=== PATIENT | male | born 1980 | race Hispanic/Latino ===

== ENCOUNTER 2017-01-11 02:41 | Emergency (ER) | payer OTHER, SELFPAY ==
[2017-01-11] MEDS ORDERED: Methocarbamol 1 GM in Sodium Chloride 0.9% 250 ML 250 ML IVPB SCH (03:45)
== END 2017-01-11 05:18 | disposition home or self-care (01) ==
LOC: ERS 02:41
DX: M54.42 Lumbago with sciatica, left side (principal); M62.830 Muscle spasm of back; E78.5 Hyperlipidemia, unspecified; E10.9 Type 1 diabetes mellitus without complications
CPT/HCPCS: 96365; J2800; J7050

== ENCOUNTER 2018-03-18 20:02 | Emergency (ER) | payer SELFPAY ==
[2018-03-18] MEDS ORDERED: Lidocaine Viscous Sol 2% 15 ml UD Cup ONE (20:46)
[2018-03-18] MEDS ORDERED: Mag-Al 1200 mg/1200 mg/30 ML UDCUP ONE (20:46)
[2018-03-18 20:55] LABS: Bilirubin Small (Negative); Blood, Urine Negative (Negative); Clarity CLEAR (Clear); Glucose, Urine (Dipstick) >=1000 mg/dL (Negative); Leukocyte Negative (Negative); Nitrite Negative (Negative); Protein, Urine (Dipstick) Trace mg/dL (Neg-Trace); Specific Gravity, Urine 1.033 (1.002-1.036)
[2018-03-18 21:19] LABS: #Basophils 0.1 thou/uL (0.0-0.2); #Lymphocytes 1.7 thou/uL (1.20-3.40); #Monocytes 1.1 thou/uL (0.11-0.59); #Neutrophils 8.3 thou/uL (1.40-6.50); %Basophils 0.5 % (0.0-1.0); %Eosinophils 0.2 % (0.0-10.0); %Lymphocytes 14.9 % (21.0-51.0); %Neutrophils 74.4 % (42.0-75.0); Hemoglobin 19.1 g/dL (14.0-18.0); Mean Corpuscular HGB CONC 34.9 g/dL (32.0-36.0); Mean Corpuscular Hemoglobin 30.3 pg (27.0-31.0); Mean Corpuscular Volume 86.8 fL (78.0-98.0); Mean Platelet Volume 8.3 fL (7.4-10.4); Platelet Count 284 thou/uL (130-400); RBC Distribution Width 11.7 % (11.5-14.5); Red Blood Cell (RBC) Count 6.31 mill/uL (4.70-6.10); White Blood Cell (WBC) Count 11.2 thou/uL (4.8-10.8)
[2018-03-18 21:52] LABS: ALT (SGPT) 17 U/L (8-55); AST (SGOT) 18 U/L (5-34); Albumin 4.4 g/dL (3.5-5.0); Alkaline Phosphatase 94 U/L (40-150); Anion Gap 21 mmol/L (10-20); BUN (Urea Nitrogen) 27 mg/dL (8.9-20.6); Calc. Creatinine Clearance 0 mL/min (70-130); Calcium 9.5 mg/dL (7.8-10.44); Carbon Dioxide 24 mmol/L (22-29); Chloride 88 mmol/L (98-107); Estimated GFR-MDRD 66; Globulin 3.6 g/dL (2.4-3.5); Glucose 323 mg/dL (70-105); Lipase 6 U/L (8-78); Potassium 3.4 mmol/L (3.5-5.1); Sodium 130 mmol/L (136-145)
[2018-03-18] MEDS ORDERED: Insulin Regular 300 UNITS/3 ML VIAL ONE (23:08)
[2018-03-18] MEDS ORDERED: Metoclopramide HCl 10 MG/2 ML VIAL ONE (23:08)
== END 2018-03-18 23:57 | disposition home or self-care (01) ==
LOC: ERS 20:02
DX: E10.65 Type 1 diabetes mellitus with hyperglycemia (principal); E78.5 Hyperlipidemia, unspecified
CPT/HCPCS: 36416; 80053; 81003; 83690; 85025; 96361; 96374; J1815; J2765

== ENCOUNTER 2018-07-01 06:09 | Inpatient (IN) | payer SELFPAY ==
[2018-07-01 06:46] LABS: Base Excess-Venous -20.3 mmol/L (-2.0 to 3.0); Bicarbonate (HCO3v) 7.3 mmol/L (22.0-28.0); CO2 Tension (PvCO2) 23.1 mmHg (40.0-50.0); Calcium, Ionized 1.06 mmol/L (See Comments:); Chloride 106 mmol/L (98-107); Hemoglobin - Calc 19.4 g/dL (14.0-18.0); O2 Tension (PvO2) 52.8 mmHg (35.0-45.0); Sodium 130 mmol/L (138-145); pH (Venous) 7.109 (7.320-7.430); vO2 Saturation-calc 75.4 % (60.0-85.0)
[2018-07-01] MEDS ORDERED: Ondansetron PF 4 MG/2 ML Vial ONE (06:47)
[2018-07-01 06:50] LABS: Hemoglobin 17.3 g/dL (14.0-18.0); Mean Corpuscular HGB CONC 33.7 g/dL (32.0-36.0); Mean Corpuscular Hemoglobin 29.7 pg (27.0-31.0); Mean Corpuscular Volume 87.9 fL (78.0-98.0); Mean Platelet Volume 9.3 fL (7.4-10.4); Platelet Count 304 thou/uL (130-400); RBC Distribution Width 13.5 % (11.5-14.5); Red Blood Cell (RBC) Count 5.85 mill/uL (4.70-6.10); White Blood Cell (WBC) Count 25.4 thou/uL (4.8-10.8)
[2018-07-01 07:04] LABS: Band 24 % (5-11); Lymphocytes 8 % (21-51); MDiff Complete? YES; Monocytes 7 % (0-10); Neutrophil 59 % (42-75); RBC Morphology Normal; Reactive Lymphocytes 2 % (0-10)
[2018-07-01 07:11] LABS: Actual Bicarbonate (HCO3a) 6.1 mEq/L (22-28); Analyzer IN Cardio ER; Base Excess (BEa) -20.7 mEq/L (-2.0 to +3.0); Calcium, Ionized 1.21 mmol/L (1.12-1.30); Carboxyhemoglobin (COHb) 0.6 gm% (0.0-3.0); Hemoglobin (Hb) 16.7 g/dL (14.0-18.0); O2 Tension (PaO2) 124.2 mmHg (80.0-100.0); Potassium - ABG Lab 4.24 mmol/L (3.70-5.30)
[2018-07-01 07:13] LABS: pH, Arterial 7.14 (7.35-7.45)
[2018-07-01 07:14] LABS: CO2 Tension 18.4 mmHg (35.0-45.0); Puncture Site LBA
[2018-07-01 07:16] LABS: ALT (SGPT) 19 U/L (8-55); AST (SGOT) 15 U/L (5-34); Albumin 5.2 g/dL (3.5-5.0); Alkaline Phosphatase 109 U/L (40-150); Anion Gap 39 mmol/L (10-20); BUN (Urea Nitrogen) 18 mg/dL (8.9-20.6); Bilirubin, Total 0.8 mg/dL (0.2-1.2); Calc. Creatinine Clearance 0 mL/min (70-130); Calcium 10.1 mg/dL (7.8-10.44); Chloride 93 mmol/L (98-107); Estimated GFR-MDRD 41; Globulin 3.6 g/dL (2.4-3.5); Glucose 493 mg/dL (70-105); Potassium 4.4 mmol/L (3.5-5.1); Protein, Total 8.8 g/dL (6.0-8.3); Sodium 136 mmol/L (136-145)
[2018-07-01 07:21] LABS: Carbon Dioxide 8 mmol/L (22-29)
[2018-07-01] MEDS ORDERED: HUMULIN R 100 UNITS in Sodium Chloride 0.9% 100 ML IVPB SCH (07:30)
[2018-07-01] MEDS ORDERED: Insulin Regular 300 UNITS/3 ML VIAL ONE (07:37)
[2018-07-01] MEDS ORDERED: Ondansetron ODT 4 MG TAB PO PRN (08:12)
[2018-07-01] MEDS ORDERED: Dextrose 5 %-0.45 % NaCl 1,000 ML IV PRN (08:12)
[2018-07-01] MEDS ORDERED: Zolpidem Tartrate 5 MG TAB PO PRN (08:12)
[2018-07-01] MEDS ORDERED: CCU Electrolyte Replacement 1 EACH IVPB ONE (08:12)
[2018-07-01] MEDS ORDERED: D5 1/2 NS w/20 mEq KCL 1,000 ML IV PRN (08:12)
[2018-07-01] MEDS ORDERED: NS 0.9% w/ 20 MEQ KCL 1,000 ML IV PRN ×2 (08:12)
[2018-07-01] MEDS ORDERED: Sodium Chloride 0.9% 1,000 ML IV PRN ×4 (08:12)
[2018-07-01] MEDS ORDERED: Acetaminophen 325 MG TAB PO PRN (08:12)
[2018-07-01] MEDS ORDERED: Magnesium Oxide 400 MG TAB PO PRN ×2 (08:36)
[2018-07-01] MEDS ORDERED: Potassium Chloride 40 MEQ in Premix Bag 1 BAG IVPB PRN (08:36)
[2018-07-01] MEDS ORDERED: Potassium Phosphate 12 MMOL in Sodium Chloride 0.9% 250 ML 250 ML IV PRN (08:36)
[2018-07-01] MEDS ORDERED: Potassium Chloride 20 MEQ TAB PO PRN (08:36)
[2018-07-01] MEDS ORDERED: Potassium Phosphate 15 MMOL in Sodium Chloride 0.9% 250 ML 250 ML IV PRN (08:36)
[2018-07-01] MEDS ORDERED: Potassium Chloride 40 MEQ in Sodium Chloride 0.9% 250 ML 250 ML IVPB PRN (08:36)
[2018-07-01] MEDS ORDERED: Magnesium 2 GM/50 ML 2 GM in Premix Bag 1 BAG IVPB PRN (08:36)
[2018-07-01] MEDS ORDERED: CCU ELECTROLYTE REPLACEMENT PROTOCOL FS PRN (08:36)
[2018-07-01 08:45] LABS: Bilirubin Negative (Negative); Blood, Urine Trace (Negative); Clarity TURBID (Clear); Glucose, Urine (Dipstick) >=1000 mg/dL (Negative); Leukocyte Negative (Negative); Nitrite Negative (Negative); Protein, Urine (Dipstick) 30 mg/dL (Neg-Trace); Specific Gravity, Urine 1.026 (1.002-1.036); Urobilinogen 0.2 mg/dL (0.2-1.0)
[2018-07-01 08:49] LABS: BUN (Urea Nitrogen) 18 mg/dL (8.9-20.6); Calc. Creatinine Clearance 0 mL/min (70-130); Calcium 9.1 mg/dL (7.8-10.44); Chloride 100 mmol/L (98-107); Estimated GFR-MDRD 46; Glucose 439 mg/dL (70-105); Potassium 4.3 mmol/L (3.5-5.1); Sodium 137 mmol/L (136-145)
[2018-07-01 08:49] LABS: Bacteria/HPF None Seen HPF (None Seen); Hyaline Casts/LPF 4-6 HYALINE CAST LPF (0-3 Hyaline); Pathc Cast-AUWi Flag 0.27 (0-2.49); RBC/HPF 0-3 HPF (0-3); Squamous Epithelial None Seen HPF (0-3); WBC/HPF None Seen HPF (0-3)
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
[2018-07-01 09:01] LABS: Carbon Dioxide Less than 8 mmol/L (22-29)
--- NOTE | 2018-07-01 09:15 | RAD ---
CHEST ONE VIEW: HISTORY: Diabetic ketoacidosis. COMPARISON: 11/17/2016 FINDINGS: Normal cardiac silhouette. Pulmonary vessels and hilum are normal. Costophrenic angles are clear. No masses or consolidation. No pneumothorax or osseous abnormalities. IMPRESSION: No acute cardiopulmonary process. POS: C
[2018-07-01 12:21] LABS: Lactic Acid 1.6 mmol/L (0.5-2.2)
[2018-07-01] MEDS: Heparin 5,000 UNITS/ML VIAL SC SCH ×2 (12:21→16:03)
[2018-07-01 12:27] VITALS: BMI 28.9
[2018-07-01 12:38] LABS: BUN (Urea Nitrogen) 17 mg/dL (8.9-20.6); Calc. Creatinine Clearance 78 mL/min (70-130); Calcium 8.7 mg/dL (7.8-10.44); Chloride 103 mmol/L (98-107); Estimated GFR-MDRD 46; Glucose 332 mg/dL (70-105); Sodium 139 mmol/L (136-145)
[2018-07-01 12:41] LABS: Carbon Dioxide Less than 8 mmol/L (22-29)
[2018-07-01] MEDS ORDERED: Ondansetron PF 4 MG/2 ML Vial IVP PRN (15:32)
[2018-07-01] MEDS ORDERED: Sodium Chloride 0.9% (PF) 10 ML VIAL FS PRN (15:52)
[2018-07-01] MEDS ORDERED: Pantoprazole 40 MG VIAL IVP SCH (16:00)
[2018-07-01] MEDS: HUMULIN R 100 UNITS in Sodium Chloride 0.9% 100 ML IVPB SCH (16:08)
[2018-07-01] MEDS: D5 1/2 NS w/20 mEq KCL 1,000 ML IV SCH ×2 (16:09→23:12)
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
[2018-07-01 16:43] LABS: Hemoglobin 15.8 g/dL (14.0-18.0)
[2018-07-01 16:51] LABS: INR-International Normal Ratio 1.1; Prothrombin Time 14.3 SEC (12.0-14.7)
[2018-07-01 17:02] LABS: Anion Gap 21 mmol/L (10-20); BUN (Urea Nitrogen) 14 mg/dL (8.9-20.6); Calc. Creatinine Clearance 89 mL/min (70-130); Calcium 8.5 mg/dL (7.8-10.44); Carbon Dioxide 11 mmol/L (22-29); Chloride 112 mmol/L (98-107); Estimated GFR-MDRD 54; Glucose 176 mg/dL (70-105); Sodium 140 mmol/L (136-145)
[2018-07-01] MEDS ORDERED: Promethazine HCl 25 MG/ML VIAL IVPB STA (18:51)
[2018-07-01 19:15] LABS: Magnesium 2.6 mg/dL (1.6-2.6)
[2018-07-01] MEDS ORDERED: Ondansetron PF 4 MG/2 ML Vial IVP SCH (19:15)
[2018-07-01] MEDS ORDERED: Promethazine HCl 12.5 MG in Sodium Chloride 0.9% 50 ML IVPB SCH (19:15)
[2018-07-01 19:19] LABS: Phosphorus 1.3 mg/dL (2.3-4.7)
[2018-07-01 20:02] LABS: Hemoglobin 15.4 g/dL (14.0-18.0)
[2018-07-01] MEDS: Pantoprazole 40 MG VIAL IVP SCH (20:03)
[2018-07-01] MEDS: Potassium Phosphate 9 MMOL in Sodium Chloride 0.9% 100 ML IVPB PRN (20:28)
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
[2018-07-02] MEDS: Ondansetron PF 4 MG/2 ML Vial IVP SCH ×4 (00:25→17:59)
[2018-07-02] MEDS: HUMULIN R 100 UNITS in Sodium Chloride 0.9% 100 ML IVPB SCH ×2 (02:45→17:54)
[2018-07-02 04:50] LABS: #Monocytes 1.3 thou/uL (0.11-0.59); #Neutrophils 13.5 thou/uL (1.40-6.50); %Basophils 0.3 % (0.0-1.0); %Eosinophils 0.1 % (0.0-10.0); %Lymphocytes 6.5 % (21.0-51.0); %Neutrophils 85.2 % (42.0-75.0); Hemoglobin 14.7 g/dL (14.0-18.0); Mean Corpuscular HGB CONC 34.7 g/dL (32.0-36.0); Mean Corpuscular Hemoglobin 30.3 pg (27.0-31.0); Mean Corpuscular Volume 87.3 fL (78.0-98.0); Mean Platelet Volume 8.7 fL (7.4-10.4); Platelet Count 232 thou/uL (130-400); RBC Distribution Width 13.4 % (11.5-14.5); Red Blood Cell (RBC) Count 4.85 mill/uL (4.70-6.10); White Blood Cell (WBC) Count 15.9 thou/uL (4.8-10.8)
[2018-07-02 05:05] LABS: Anion Gap 15 mmol/L (10-20); BUN (Urea Nitrogen) 11 mg/dL (8.9-20.6); Calc. Creatinine Clearance 110 mL/min (70-130); Calcium 8.9 mg/dL (7.8-10.44); Carbon Dioxide 16 mmol/L (22-29); Chloride 112 mmol/L (98-107); Estimated GFR-MDRD 69; Glucose 156 mg/dL (70-105); Magnesium 2.1 mg/dL (1.6-2.6); Potassium 3.3 mmol/L (3.5-5.1); Sodium 140 mmol/L (136-145)
[2018-07-02 05:06] LABS: Phosphorus Less than 1.0 mg/dL (2.3-4.7)
[2018-07-02] MEDS: D5 1/2 NS w/20 mEq KCL 1,000 ML IV SCH ×3 (05:42→22:13)
[2018-07-02] MEDS: Pantoprazole 40 MG VIAL IVP SCH ×2 (11:16→20:59)
--- NOTE | 2018-07-02 16:02 | PRG ---
DATE OF SERVICE: 07/02/2018 SUBJECTIVE: Mr. Mena has had no further hematemesis. He is taking a little bit of liquids. He is a little bit nauseated right now. His previous admission with DKA had a similar event with hematemesis. His endoscopy at that time showed LA grade D reflux esophagitis and a small Kaitlynn-Andrews tear. I suspect that the same process presently. Nurses note he is coming out of his DKA. He states he feels much better than yesterday. OBJECTIVE: VITAL SIGNS: Temperature is 98.3, blood pressure 112/63, and pulse 69. ABDOMEN: Soft and nontender. LUNGS: Clear. LABORATORY DATA: White count 15.9, hemoglobin 14.7, and platelet count 232. BUN and creatinine are 14 and 1.47. Phosphorus 1.3 and magnesium 2.6. They have been replaced. Anion gap was 15, potassium 3.3, chloride 112, CO2 of 16, and sodium 140. ASSESSMENT: 1. Diabetic ketoacidosis secondary to running out of his medications. 2. Hematemesis, likely related to severe reflux esophagitis and Kaitlynn-Andrews tear. Again, this is resolved. No need for transfusion. RECOMMENDATIONS: 1. Continue IV PPI q.12 hours. Advance diet slowly. 2. Replace electrolytes as necessary. Job ID: [id number]
[2018-07-02] MEDS ORDERED: D5 1/2 NS w/20 mEq KCL 1,000 ML IV SCH (16:50)
--- NOTE | 2018-07-02 17:02 | PRG ---
DATE OF SERVICE: 07/02/2018 SERVICE: Pulmonary Medicine. INTERVAL HISTORY: The patient is doing great from a respiratory standpoint. Breathing comfortably. Denies any current chest pain, fevers, or chills. Since his last episode of vomiting, he has not brought up anything else. He does not have any nausea, vomiting, or diarrhea at this point. That being said, he has a complete food aversion still. He has no desire to eat. PHYSICAL EXAMINATION: VITAL SIGNS: Afebrile, pulse 68, blood pressure 106/66, respirations 13, and saturation 100% on room air. GENERAL: The patient is awake and alert, in no apparent distress. LUNGS: Decent air entry. No prolonged expiratory phase or wheezing appreciated. HEART: Normal rate, regular. ABDOMEN: Soft, nontender, and nondistended. Bowel sounds positive. MUSCULOSKELETAL: No cyanosis or clubbing. No pitting in the bilateral lower extremities. NEUROLOGIC: Grossly nonfocal. LABORATORY DATA: Hemoglobin is gently trending down to 14.7, WBC 15.9, and platelets 232,000. INR was previously 1.1. Blood sugar ranges from 129 to 192. Phosphorus was less than the acid limit of 1, magnesium 2.1. Creatinine 1.19, which is beautifully downtrending. Basic metabolic profile is otherwise unremarkable except for potassium of 3.3. Beta-hydroxybutyrate 2.35. Blood cultures x2 are unremarkable. ASSESSMENT: 1. Diabetic ketoacidosis. 2. Upper gastrointestinal bleed, suspected Kaitlynn-Andrews tear. 3. Acute kidney injury, resolved. DISCUSSION AND PLAN: The patient is doing absolutely wonderful. At this point, he still does not have a food aversion. As soon as he has an appetite, we will put him on long-acting insulin and interrupt our IV insulin drip. Until that occurs, we will leave him on his current IV fluids. Pulmonary Critical Care will continue to follow along. Otherwise, supportive measures will be continued through time. Job ID: [id number]
[2018-07-02 20:40] LABS: Anion Gap 12 mmol/L (10-20); BUN (Urea Nitrogen) 6 mg/dL (8.9-20.6); Calc. Creatinine Clearance 132 mL/min (70-130); Carbon Dioxide 21 mmol/L (22-29); Chloride 107 mmol/L (98-107); Estimated GFR-MDRD 85; Glucose 224 mg/dL (70-105); Sodium 137 mmol/L (136-145)
[2018-07-02 20:45] LABS: Phosphorus 1.1 mg/dL (2.3-4.7)
[2018-07-02] MEDS: Potassium Phosphate 9 MMOL in Sodium Chloride 0.9% 100 ML IVPB PRN (21:00)
[2018-07-02] MEDS ORDERED: Insulin Regular 300 UNITS/3 ML VIAL SC PRN ×2 (21:08)
[2018-07-02] MEDS ORDERED: Dextrose 50% Abboject 50 ML SYRINGE SLOW IVP PRN (21:08)
[2018-07-02] MEDS ORDERED: Dextrose 5% in Water 1,000 ML IV PRN (21:08)
[2018-07-02] MEDS ORDERED: 1/2 NS w/KCL 20 mEq 1,000 ML IV SCH (21:15)
[2018-07-02] MEDS ORDERED: NPH, Human Insulin Isophane 300 UNIT/3 ML VIAL SC SCH (21:15)
--- NOTE | 2018-07-02 23:08 | PDOC.PN ---
- Subjective Encounter Start Date: 07/02/18 Encounter Start Time: 09:45 Patient seen and examined for DKA. Nausea +. No hematemesis. No new complaints. No overnight events - Objective Resuscitation Status - Order Detail: 07/01/18 08:09 Resuscitation Status Routine Resuscitation Status: FULL: Full Resuscitation MAR Reviewed: Yes Vital Signs & Weight: Vital Signs (12 hours) Temp 07/02/18 20:00 98.6 F 07/02/18 15:18 98.3 F Weight Weight 201 lb 6.4 oz Most Recent Monitor Data Heart Rate from ECG 75 NIBP 112/65 NIBP BP-Mean 80 Respiration from ECG 18 SpO2 97 I&O: 07/01/18 07/02/18 07/03/18 06:59 06:59 06:59 Intake Total 2035 2500 Output Total 650 Balance 1385 2500 Result Diagrams: 07/02/18 04:09 07/02/18 20:15 Additional Labs: Accuchecks 07/02/18 07/02/18 07/02/18 22:06 21:00 20:01 POC Glucose 182 H 209 H 214 H 07/02/18 07/02/18 07/02/18 19:08 17:53 16:01 POC Glucose 262 H 286 H 192 H 07/02/18 07/02/18 07/02/18 14:59 13:06 12:19 POC Glucose 148 H 158 H 139 H 07/02/18 07/02/18 07/02/18 10:53 10:01 09:04 POC Glucose 131 H 129 H 125 H 07/02/18 07/02/18 07/02/18 08:16 07:09 06:04 POC Glucose 134 H 116 H 130 H 07/02/18 07/02/18 07/02/18 05:18 04:07 03:05 POC Glucose 134 H 149 H 161 H 07/02/18 07/02/18 07/02/18 01:57 01:03 00:03 POC Glucose 172 H 167 H 211 H 07/01/18 23:05 POC Glucose 189 H Radiology Reviewed by me: Yes (CXR - Neg) EKG Reviewed by me: Yes (Tele SR) Phys Exam - Physical Examination Constitutional: NAD Respiratory: no wheezing, no rales, no rhonchi, clear to auscultation bilateral Cardiovascular: no rub no heaves/pulsations. Tachycardic Gastrointestinal: soft, positive bowel sounds Musculoskeletal: no edema, pulses present Neurological: non-focal, normal sensation, moves all 4 limbs Psychiatric: normal affect, A&O x 3 Skin: no rash Dx/Plan - Plan DVT proph w/SCDs 1. DKA due to med noncompliance 2. Hematemesis - prob due to Reflux esophagitis 3. Electrolyte abnormalities (Hypokalemia/Hypophosphatemia) 4. Metabolic acidosis due to Lactic and DKA 5. Dehydration 6. OSWALDO on CKD 2 7. Type 1 DM PLAN: Cont Insulin drip Cont D51/2 NS with KCL Replace electrolytes Cont IV PPI Clear liqd diet AM labs Repeat BMP later today Counselled on med compliance Review of Systems - Review of Systems Respiratory: negative: Cough, Dry, Shortness of Breath, Hemoptysis, SOB with Excertion, Pleuritic Pain, Sputum, Wheezing Cardiovascular: negative: chest pain, palpitations, orthopnea, paroxysmal nocturnal dyspnea, edema, light headedness, other Genitourinary: negative: Dysuria, Frequency, Incontinence, Hematuria, Retention , Other - Medications/Allergies Allergies/Adverse Reactions: Allergies Allergy/AdvReac Type Severity Reaction Status Date / Time No Known Drug Allergies Allergy Verified 07/01/18 11:54 Medications: Current Medications Acetaminophen (Tylenol) 650 mg PO Q4H PRN PRN Reason: Headache/Fever/Mild Pain (1-3) Dextrose/Water (Dextrose 50%) 25 gm SLOW IVP PRN PRN PRN Reason: Hypoglycemia Glucagon (Glucagon) 1 mg IM PRN PRN PRN Reason: Hypoglycemia Insulin Human Regular 100 (units/ Sodium Chloride) 101 mls @ 0 mls/hr IVPB INF DASH; Protocol Last Admin: 07/02/18 17:54 Dose: 101 mls Potassium Chloride 40 meq/ (Sodium Chloride) 270 mls @ 135 mls/hr IVPB ASDIR PRN PRN Reason: FOR SERUM K+ 2.5 - 3.5 Potassium Chloride 40 meq/ (Device) 100 mls @ 50 mls/hr IVPB ASDIR PRN PRN Reason: FOR SERUM K+ 2.5 - 3.5 Magnesium Sulfate 1 gm/ Sodium (Chloride) 102 mls @ 102 mls/hr IV PRN PRN PRN Reason: MAG LEVEL 1.4 - 2.0 Magnesium Sulfate 2 gm/ Device 50 mls @ 50 mls/hr IVPB ASDIR PRN PRN Reason: MAGNESIUM < 1.4 Potassium Phosphate 9 mmol/ (Sodium Chloride) 103 mls @ 25.75 mls/hr IVPB ASDIR PRN PRN Reason: Phosphate 1.0-1.8 Last Admin: 07/02/18 21:00 Dose: 103 mls Potassium Phosphate 12 mmol/ (Sodium Chloride) 254 mls @ 63.5 mls/hr IV ASDIR PRN PRN Reason: Serum phosphate 0.5-0.9 Last Admin: 07/02/18 05:42 Dose: 254 mls Potassium Phosphate 15 mmol/ (Sodium Chloride) 255 mls @ 63.75 mls/hr IV ASDIR PRN PRN Reason: Serum Phos < 0.5 Dextrose/Water (D5w) 1,000 mls @ 0 mls/hr IV .Q0M PRN PRN Reason: Hypoglycemia Potassium Chloride/Dextrose/Sod Cl (D5 1/2 Ns W/20 Meq Kcl) 1,000 mls @ 100 mls /hr IV .Q10H DASH Last Admin: 07/02/18 22:13 Dose: Not Given Insulin Human Regular (Humulin R) 0 units SC .BEDTIME SLIDING SC PRN PRN Reason: Bedtime Correctional Scale Insulin Human Regular (Humulin R) 0 units SC .AGGRESSIVE SLIDING PRN PRN Reason: Aggressive Sliding Scale Magnesium Oxide (Magnesium Oxide) 400 mg PO BIDPRN PRN PRN Reason: FOR SERUM MAG 1.4 - 2.0 Magnesium Oxide (Magnesium Oxide) 800 mg PO PRN PRN PRN Reason: FOR SERUM MAG < 1.4 Miscellaneous Medication (Phos-Nak) 1 pkt PO TIDPRN PRN PRN Reason: FOR PHOS LEVEL 1.0 - 1.8 Miscellaneous Medication (Phos-Nak) 2 pkt PO TIDPRN PRN PRN Reason: FOR PHOS LEVEL 0.5 - 1.0 Ccu Electrolyte (Replacement Protocol) 0 each FS PRN PRN PRN Reason: FOR ELECTROLYTE REPLACEMENT Ondansetron HCl (Zofran Odt) 4 mg PO Q6H PRN PRN Reason: Nausea/Vomiting Last Admin: 07/01/18 12:34 Dose: 4 mg Ondansetron HCl (Zofran) 4 mg IVP Q6HR DASH Last Admin: 07/02/18 17:59 Dose: 4 mg Pantoprazole Sodium (Protonix) 40 mg IVP Q12HR DASH Phosphorus (Kphos Neutral) 250 mg PO TID-WM DASH Potassium Chloride (K-Dur) 40 meq PO ASDIR PRN PRN Reason: FOR SERUM K+ 2.5 - 3.5 Potassium Chloride (Klor-Con) 40 meq PER TUBE ASDIR PRN PRN Reason: FOR SERUM K+ 2.5-3.5 Sodium Chloride (Normal Saline Pf) 10 ml FS PRN PRN PRN Reason: RECONSTITUTION Zolpidem Tartrate (Ambien) 5 mg PO HSPRN PRN PRN Reason: Insomnia
[2018-07-03] MEDS: Ondansetron PF 4 MG/2 ML Vial IVP SCH ×5 (00:06→23:28)
[2018-07-03 05:17] LABS: #Lymphocytes 1.3 thou/uL (1.20-3.40); #Monocytes 0.8 thou/uL (0.11-0.59); #Neutrophils 6.8 thou/uL (1.40-6.50); %Basophils 0.5 % (0.0-1.0); %Eosinophils 0.1 % (0.0-10.0); %Lymphocytes 14.2 % (21.0-51.0); %Monocytes 9.2 % (0.0-10.0); Hemoglobin 14.8 g/dL (14.0-18.0); Mean Corpuscular HGB CONC 34.8 g/dL (32.0-36.0); Mean Corpuscular Hemoglobin 30.2 pg (27.0-31.0); Mean Platelet Volume 8.6 fL (7.4-10.4); Platelet Count 212 thou/uL (130-400); RBC Distribution Width 13.4 % (11.5-14.5); White Blood Cell (WBC) Count 8.9 thou/uL (4.8-10.8)
[2018-07-03 05:40] LABS: Anion Gap 12 mmol/L (10-20); BUN (Urea Nitrogen) 5 mg/dL (8.9-20.6); Calc. Creatinine Clearance 152 mL/min (70-130); Calcium 8.9 mg/dL (7.8-10.44); Carbon Dioxide 23 mmol/L (22-29); Chloride 105 mmol/L (98-107); Estimated GFR-MDRD Greater than 90; Glucose 166 mg/dL (70-105); Sodium 137 mmol/L (136-145)
[2018-07-03 05:55] LABS: Potassium 2.9 mmol/L (3.5-5.1)
[2018-07-03 05:59] LABS: Phosphorus 2.1 mg/dL (2.3-4.7)
[2018-07-03] MEDS: D5 1/2 NS w/20 mEq KCL 1,000 ML IV SCH (06:18)
[2018-07-03] MEDS ORDERED: K-Phos Neutral 250 MG TAB PO SCH (08:00)
[2018-07-03] MEDS ORDERED: NPH, Human Insulin Isophane 300 UNIT/3 ML VIAL SC SCH (09:00)
[2018-07-03] MEDS ORDERED: Potassium Phosphate 12 MMOL in Sodium Chloride 0.9% 100 ML IVPB SCH (12:00)
[2018-07-03] MEDS ORDERED: Potassium Chloride 20 MEQ TAB PO SCH (14:00)
[2018-07-03] MEDS ORDERED: HumuLIN 70/30 (300 UNITS/3 ML VIAL) SC SCH (14:00)
[2018-07-03] MEDS: HUMULIN R 100 UNITS in Sodium Chloride 0.9% 100 ML IVPB SCH (14:04)
--- NOTE | 2018-07-03 14:11 | PRG ---
DATE OF SERVICE: 07/03/2018 SERVICE: Pulmonary Medicine. INTERVAL HISTORY: The patient is doing great from a respiratory standpoint. Denies any current chest pain, fevers, chills, nausea, vomiting, or shortness of breath. His appetite has perked up. Otherwise, there has been no other changes in his condition. PHYSICAL EXAMINATION: VITAL SIGNS: Afebrile, pulse 65, blood pressure 121/77, respirations 14, and saturation 100% on room air. GENERAL: The patient is awake and alert, in no apparent distress. LUNGS: Excellent air entry. There is no prolonged expiratory phase or wheezing. HEART: Normal rate and regular. ABDOMEN: Soft, nontender, and nondistended. Bowel sounds are positive. MUSCULOSKELETAL: No cyanosis or clubbing. No pitting in the bilateral lower extremities. NEUROLOGIC: Grossly nonfocal. LABORATORY DATA: WBC 8.9, hemoglobin 14.8, and platelets 212,000. Potassium 2.9. Basic metabolic profile is otherwise unremarkable. Phosphorus 2.1. Anion gap is closed. Bicarb is back to the normal range. Blood sugars range in the mid to low 200s. Blood cultures x2 are unremarkable. ASSESSMENT: 1. Diabetic ketoacidosis. 2. Upper gastrointestinal bleed, suspected Kaitlynn-Andrews tear with stable hemoglobins. 3. Acute kidney injury, resolved. DISCUSSION AND PLAN: I will replace potassium and phosphorus. At this point, we will convert him over to subcu insulin. Get him out of the IMCU. If he is stable tomorrow, he can be discharged from the hospital. When he leaves the IMCU, he will have no further requirements for pulmonary opinion and I will sign off. Please call with any additional questions or concerns through time. Job ID: [id number]
[2018-07-03] MEDS: Pantoprazole 40 MG VIAL IVP SCH ×2 (16:26→20:35)
[2018-07-03] MEDS: HumuLIN 70/30 (300 UNITS/3 ML VIAL) SC SCH (17:51)
--- NOTE | 2018-07-03 19:12 | PRG ---
DATE OF SERVICE: 07/03/2018 SUBJECTIVE: Mr. Mena is feeling much better. He is going to eat. He is having no further nausea. He has had no vomiting. OBJECTIVE: VITAL SIGNS: Temperature is 97, pulse 63, and blood pressure 146/86. GENERAL: He is now going upstairs. LABORATORY DATA: White count is 8.9, hemoglobin 14.8, and platelet count 212. Anion gap was closed today. ASSESSMENT: Hematemesis, self-limited when he was in diabetic ketoacidosis and having persistent retching. Most likely, he had esophagitis or Kaitlynn-Andrews tear. He has had no emesis or melena in 2 days. His hemoglobin is stable. RECOMMENDATIONS: 1. Continue PPI. If tolerating diet, we can change to oral PPIs. 2. Poorly controlled diabetes, DKA related to apparently even running out of noncompliance with insulin. I have discussed with him that this will affect his entire body including GI tract and the link between the severe DKA and his nausea, abdominal pain, and vomiting. At this time, he has no primary signs of GI tract disease or liver disease. We will go ahead and sign off. If we can be of any further assistance, please do not hesitate to contact me. Job ID: [id number]
--- NOTE | 2018-07-03 22:54 | PDOC.PN ---
- Subjective Encounter Start Date: 07/03/18 Encounter Start Time: 16:00 Patient seen and examined for DKA. Nausea improving. No new complaints. No overnight events - Objective Resuscitation Status - Order Detail: 07/01/18 08:09 Resuscitation Status Routine Resuscitation Status: FULL: Full Resuscitation MAR Reviewed: Yes Vital Signs & Weight: Vital Signs (12 hours) Temp Pulse Resp BP Pulse Ox 07/03/18 21:16 99 F 71 16 103/69 100 07/03/18 20:00 98.3 F 87 18 143/73 H 94 L 07/03/18 18:10 97.9 F 72 16 142/72 H 96 07/03/18 15:02 97.7 F Weight Weight 201 lb 6.4 oz Most Recent Monitor Data Heart Rate from ECG 63 NIBP 146/86 NIBP BP-Mean 106 Respiration from ECG 17 SpO2 90 I&O: 07/02/18 07/03/18 07/04/18 06:59 06:59 06:59 Intake Total 2035 4005.5 Output Total 650 1100 Balance 1385 2905.5 Result Diagrams: 07/04/18 06:18 07/04/18 06:18 Additional Labs: Accuchecks 07/03/18 07/03/18 07/03/18 21:25 14:57 13:58 POC Glucose 257 H 260 H 195 H 07/03/18 07/03/18 07/03/18 13:01 12:09 11:07 POC Glucose 235 H 200 H 212 H 07/03/18 07/03/18 07/03/18 10:05 09:10 08:03 POC Glucose 221 H 261 H 228 H 07/03/18 07/03/18 07/03/18 07:06 06:15 05:07 POC Glucose 235 H 213 H 167 H 07/03/18 07/03/18 07/03/18 04:08 03:06 02:05 POC Glucose 138 H 112 H 122 H 07/03/18 07/03/18 07/02/18 01:05 00:07 23:02 POC Glucose 151 H 149 H 149 H EKG Reviewed by me: Yes (Tele SR) Phys Exam - Physical Examination Constitutional: NAD Respiratory: no wheezing, no rhonchi Cardiovascular: RRR, no rub Gastrointestinal: soft, non-tender, positive bowel sounds Musculoskeletal: no edema Neurological: moves all 4 limbs Dx/Plan - Plan DVT proph w/SCDs 1. DKA 2. Hematemesis - prob due to Reflux esophagitis 3. Electrolyte abnormalities (Hypokalemia/Hypophosphatemia) 4. Metabolic acidosis due to Lactic and DKA 5. Dehydration 6. OSWALDO on CKD 2 7. Type 1 DM PLAN: Change Insulin drip to SQ later today Advance diet PPI AM labs Counselled on med compliance Review of Systems - Review of Systems Respiratory: negative: Cough, Dry, Shortness of Breath, Hemoptysis, SOB with Excertion, Pleuritic Pain, Sputum, Wheezing Cardiovascular: negative: chest pain, palpitations, orthopnea, paroxysmal nocturnal dyspnea, edema, light headedness, other - Medications/Allergies Allergies/Adverse Reactions: Allergies Allergy/AdvReac Type Severity Reaction Status Date / Time No Known Drug Allergies Allergy Verified 07/01/18 11:54 Medications: Current Medications Acetaminophen (Tylenol) 650 mg PO Q4H PRN PRN Reason: Headache/Fever/Mild Pain (1-3) Dextrose/Water (Dextrose 50%) 25 gm SLOW IVP PRN PRN PRN Reason: Hypoglycemia Glucagon (Glucagon) 1 mg IM PRN PRN PRN Reason: Hypoglycemia Insulin Human Regular 100 (units/ Sodium Chloride) 101 mls @ 0 mls/hr IVPB INF DASH; Protocol Last Admin: 07/03/18 14:04 Dose: 101 mls Dextrose/Water (D5w) 1,000 mls @ 0 mls/hr IV .Q0M PRN PRN Reason: Hypoglycemia Insulin Human Isoph/Insulin Regular (Humulin 70/30) 20 units SC BID-AC DASH Last Admin: 07/03/18 17:51 Dose: Not Given Insulin Human Regular (Humulin R) 0 units SC .BEDTIME SLIDING SC PRN PRN Reason: Bedtime Correctional Scale Last Admin: 07/03/18 21:51 Dose: 3 unit Insulin Human Regular (Humulin R) 0 units SC .AGGRESSIVE SLIDING PRN PRN Reason: Aggressive Sliding Scale Ondansetron HCl (Zofran Odt) 4 mg PO Q6H PRN PRN Reason: Nausea/Vomiting Last Admin: 07/01/18 12:34 Dose: 4 mg Ondansetron HCl (Zofran) 4 mg IVP Q6HR DASH Last Admin: 07/03/18 17:58 Dose: 4 mg Pantoprazole Sodium (Protonix) 40 mg IVP Q12HR DASH Last Admin: 07/03/18 20:35 Dose: 40 mg Sodium Chloride (Normal Saline Pf) 10 ml FS PRN PRN PRN Reason: RECONSTITUTION Zolpidem Tartrate (Ambien) 5 mg PO HSPRN PRN PRN Reason: Insomnia
[2018-07-03] MEDS: 1/2 NS w/KCL 20 mEq 1,000 ML IV SCH (23:28)
[2018-07-04] MEDS: Ondansetron PF 4 MG/2 ML Vial IVP SCH ×3 (05:44→17:09)
[2018-07-04 06:40] LABS: #Lymphocytes 2.3 thou/uL (1.20-3.40); #Monocytes 0.7 thou/uL (0.11-0.59); #Neutrophils 3.9 thou/uL (1.40-6.50); %Basophils 0.3 % (0.0-1.0); %Eosinophils 0.4 % (0.0-10.0); %Lymphocytes 32.6 % (21.0-51.0); %Monocytes 10.2 % (0.0-10.0); %Neutrophils 56.6 % (42.0-75.0); Hemoglobin 15.3 g/dL (14.0-18.0); Mean Corpuscular HGB CONC 34.7 g/dL (32.0-36.0); Mean Corpuscular Hemoglobin 30.5 pg (27.0-31.0); Mean Corpuscular Volume 87.9 fL (78.0-98.0); Mean Platelet Volume 8.6 fL (7.4-10.4); Platelet Count 208 thou/uL (130-400); RBC Distribution Width 13.3 % (11.5-14.5); Red Blood Cell (RBC) Count 5.01 mill/uL (4.70-6.10); White Blood Cell (WBC) Count 6.9 thou/uL (4.8-10.8)
[2018-07-04 06:52] LABS: Anion Gap 15 mmol/L (10-20); BUN (Urea Nitrogen) 7 mg/dL (8.9-20.6); Calc. Creatinine Clearance 141 mL/min (70-130); Carbon Dioxide 27 mmol/L (22-29); Chloride 101 mmol/L (98-107); Estimated GFR-MDRD Greater than 90; Glucose 278 mg/dL (70-105); Potassium 3.5 mmol/L (3.5-5.1); Sodium 139 mmol/L (136-145)
[2018-07-04] MEDS: Pantoprazole 40 MG VIAL IVP SCH (08:14)
[2018-07-04] MEDS ORDERED: Potassium Chloride 20 MEQ TAB PO SCH (08:45)
[2018-07-04] MEDS: HumuLIN 70/30 (300 UNITS/3 ML VIAL) SC SCH (09:24)
[2018-07-04] MEDS: 1/2 NS w/KCL 20 mEq 1,000 ML IV SCH (12:34)
--- NOTE | 2018-07-04 16:10 | PRG ---
DATE OF SERVICE: 07/04/2018 SERVICE: Pulmonary Medicine. INTERVAL HISTORY: The patient is doing great from respiratory standpoint. He feels fantastic, and he is back to baseline. There was a mishap with the insulin. He did not get a dose of his longer-acting insulin. As such, his sugars are running a little high right now. That being said, this has not translated into him feeling lousy. He is breathing comfortably. He has great appetite. PHYSICAL EXAMINATION: VITAL SIGNS: Afebrile, pulse 66, blood pressure 170/117, respirations 18, and saturation 97% on room air. GENERAL: The patient is awake and alert, in no apparent distress. LUNGS: Decent air entry. There is no prolonged expiratory phase or wheezing present. HEART: Normal rate and regular. ABDOMEN: Soft, nontender, and nondistended. Bowel sounds are positive. MUSCULOSKELETAL: No cyanosis or clubbing. No pitting in the bilateral lower extremities. NEUROLOGIC: Grossly nonfocal. LABORATORY DATA: WBC 6.9, hemoglobin 15.3, platelets 208,000. Basic metabolic profile is essentially unremarkable other than potassium of 3.5. Phosphorus 3.0. Blood cultures x2 remain negative. ASSESSMENT: 1. Diabetic ketoacidosis. 2. Type 1 diabetes mellitus. 3. Upper gastrointestinal bleed, likely Kaitlynn-Andrews tear. 4. Acute kidney injury, resolved. DISCUSSION AND PLAN: I will replace potassium today. IV fluids will be interrupted. From my perspective, the patient is stable for transition out of the hospital. He has no further requirements for inpatient Pulmonary Critical Care opinion, and I will sign off. Please call with additional questions or concerns through time. Job ID: [id number]
[2018-07-04] MEDS ORDERED: HumuLIN 70/30 (300 UNITS/3 ML VIAL) SC SCH (16:30)
[2018-07-04 17:05] VITALS: BP 126/86; TEMP 98.4
--- NOTE | 2018-07-04 21:20 | DIS ---
DATE OF ADMISSION: 07/01/2018 DATE OF DISCHARGE: 07/04/2018 DISCHARGE DISPOSITION: Home. FOLLOWUP: Follow up with primary care physician at [facility] in 1 week. Patient was extensively counseled to be compliant with insulin. The patient was seen and examined on the day of discharge. Denies any new complaints. No chest pain, shortness of breath palpitations. DISCHARGE MEDICATION: 1. Humulin 70/30, 25 units b.i.d. with meals. 2. Prilosec 20 mg daily. DIAGNOSTIC TESTS: ABG showed pH of 7.14 with pCO2 18.4, bicarbonate 6.1, potassium 2.9, phosphorus less than 1.0, bicarbonate on admission less than 6, serum osmolality 327. Creatinine on admission 1.88, at discharge 0.93. Ketones 14.35 on admission. Blood cultures were negative. Chest x-ray was negative for infiltrate. Urinalysis was negative for WBC bacteria. BRIEF HOSPITAL COURSE: The patient is a 38-year-old male with diabetes mellitus type 1, presented to the hospital with nausea, vomiting, and abdominal discomfort of 2 days duration. He is currently out of insulin for more than a week. Please refer to the history and physical for further details. The patient was admitted to the hospital with a diagnosis of diabetic ketoacidosis. He was monitored in the Intermediate Care Unit. He was placed on insulin drip along with IV fluids per diabetic ketoacidosis protocol. He also had hematemesis for which he was evaluated by Gastroenterology, Dr. Bains. Per Dr. Bains, he probably had hematemesis from the esophagitis or Kaitlynn-Andrews tear. He did not have any new episodes of emesis or melena in the in the last 2 days. He was advised to follow up with primary care physician at [facility]. FINAL DIAGNOSES: 1. Diabetic ketoacidosis. 2. Severe dehydration with acute kidney injury secondary to diabetic ketoacidosis. 3. Metabolic acidosis secondary to diabetic ketoacidosis/lactic acidosis. 4. Hypokalemia/hypophosphatemia. 5. Hematemesis probably secondary to reflux esophagitis versus Kaitlynn-Andrews tear. 6. History of diabetes mellitus type 1. 7. Medication noncompliance. 8. Leukocytosis on admission, unlikely to be infectious. 9. Hyponatremia. Plan of care was discussed with the patient in detail. He stated understanding. Job ID: [id number]
--- NOTE | 2018-07-04 21:47 | EKG ---
Test Reason : TACHYCARDIA Blood Pressure : / mmHG Vent. Rate : 110 BPM Atrial Rate : 110 BPM P-R Int : 134 ms QRS Dur : 082 ms QT Int : 360 ms P-R-T Axes : 046 -05 027 degrees QTc Int : 487 ms Sinus tachycardia Possible Inferior infarct , age undetermined Abnormal ECG Confirmed by SHITAL ATKINSON ([id number]), production editor JOSIE SANDERSON ([id number]) on 07/04/2018 9:46:26 PM Referred By: Confirmed By:SHITAL ATKINSON
== END 2018-07-04 18:20 | disposition home or self-care (01) | DRG 637 ==
LOC: ERS 06:09 → IMCU/EMU 07:30 → T4-B 07-03 17:31
PROVIDERS: ADMIT Internal Medicine; ATTEND Internal Medicine
DX: E10.10 Type 1 diabetes mellitus with ketoacidosis without coma (principal); K22.6 Gastro-esophageal laceration-hemorrhage syndrome; N17.9 Acute kidney failure, unspecified; E87.1 Hypo-osmolality and hyponatremia; E86.0 Dehydration; K21.0 Gastro-esophageal reflux disease with esophagitis; E78.5 Hyperlipidemia, unspecified; E87.6 Hypokalemia; E83.39 Other disorders of phosphorus metabolism; D72.829 Elevated white blood cell count, unspecified; Z91.14 Patient's other noncompliance with medication regimen; Z79.4 Long term (current) use of insulin
CPT/HCPCS: 36415; 36416; 71045; 80048; 80053; 81003; 81015; 82010; 82330; 82803; 82805; 83605; 83735; 83930; 84100; 84484; 85025; 85610; 86850; 86900; 86901; 87040; 93005; 96361; 96365; 96366; 96375; 96376; C9113; J1815; J2405; J2550; J3480; J7050; Q0162

== ENCOUNTER 2018-12-18 15:09 | Observation (INO) | payer SELFPAY ==
[2018-12-18] MEDS ORDERED: Ondansetron PF 4 MG/2 ML Vial ONE (15:37)
[2018-12-18 15:41] LABS: #Lymphocytes 1.4 thou/uL (1.20-3.40); #Monocytes 0.8 thou/uL (0.11-0.59); #Neutrophils 15.7 thou/uL (1.40-6.50); %Basophils 0.2 % (0.0-1.0); %Eosinophils 0.1 % (0.0-10.0); %Lymphocytes 7.8 % (21.0-51.0); %Monocytes 4.4 % (0.0-10.0); %Neutrophils 87.6 % (42.0-75.0); Hemoglobin 19.9 g/dL (14.0-18.0); Mean Corpuscular HGB CONC 34.2 g/dL (32.0-36.0); Mean Corpuscular Hemoglobin 30.1 pg (27.0-31.0); Mean Platelet Volume 8.7 fL (7.4-10.4); Platelet Count 291 thou/uL (130-400); RBC Distribution Width 12.3 % (11.5-14.5); Red Blood Cell (RBC) Count 6.62 mill/uL (4.70-6.10); White Blood Cell (WBC) Count 17.9 thou/uL (4.8-10.8)
[2018-12-18 15:43] LABS: Base Excess-Venous -3.3 mmol/L (-2.0 to 3.0); Bicarbonate (HCO3v) 22.5 mmol/L (22.0-28.0); CO2 Tension (PvCO2) 41.8 mmHg (40.0-50.0); Calcium, Ionized 1.05 mmol/L (See Comments:); Chloride 102 mmol/L (98-107); Hemoglobin - Calc 20.4 g/dL (14.0-18.0); Potassium 3.8 mmol/L (3.5-5.1); Sodium 134 mmol/L (138-145); T. Carbon Dioxide 23.8 mmol/L (22.0-28.0)
[2018-12-18] MEDS ORDERED: Metoclopramide HCl 10 MG/2 ML VIAL ONE (15:43)
[2018-12-18] MEDS ORDERED: Nitroglycerin 0.4 MG TAB 1 EACH ONE (15:43)
[2018-12-18] MEDS ORDERED: diphenhydrAMINE 50 MG/ML VIAL ONE (15:43)
[2018-12-18] MEDS ORDERED: Insulin Regular 300 UNITS/3 ML VIAL ONE (15:43)
[2018-12-18 15:57] LABS: ALT (SGPT) 16 U/L (8-55); AST (SGOT) 11 U/L (5-34); Alkaline Phosphatase 118 U/L (40-150); Anion Gap 28 mmol/L (10-20); BUN (Urea Nitrogen) 26 mg/dL (8.9-20.6); Calc. Creatinine Clearance 0 mL/min (70-130); Calcium 10.2 mg/dL (7.8-10.44); Carbon Dioxide 22 mmol/L (22-29); Chloride 90 mmol/L (98-107); Estimated GFR-MDRD 43; Globulin 3.5 g/dL (2.4-3.5); Glucose 375 mg/dL (70-105); Potassium 4.1 mmol/L (3.5-5.1); Protein, Total 8.5 g/dL (6.0-8.3); Sodium 136 mmol/L (136-145)
[2018-12-18 16:40] LABS: Actual Bicarbonate (HCO3a) 16.1 mEq/L (22-28); Analyzer IN Cardio ER; Base Excess (BEa) -7.5 mEq/L (-2.0 to +3.0); CO2 Tension 29.1 mmHg (35.0-45.0); Calcium, Ionized 1.13 mmol/L (1.12-1.30); Carboxyhemoglobin (COHb) 0.3 gm% (0.0-3.0); Hemoglobin (Hb) 18.6 g/dL (14.0-18.0); O2 Tension (PaO2) 86.5 mmHg (80.0-100.0); Potassium - ABG Lab 3.36 mmol/L (3.70-5.30); pH, Arterial 7.36 (7.35-7.45)
[2018-12-18 16:41] LABS: Puncture Site LRA
--- NOTE | 2018-12-18 16:49 | PDOC.FPRHP ---
- History of Present Illness Chief Complaint: Dehydration and Hyperglycemia History of Present Illness: Pt is a 38 yo M who presents due to hyperglycemia and dehydration. 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 He has just been able to eat Cantaloupe or watermelon the last couple of days. He says he throws up 3-4 times per day. He says he has had this happen in the past. Hospitalized last year in August for DKA. He - Allergies/Adverse Reactions Allergies Allergy/AdvReac Type Severity Reaction Status Date / Time No Known Drug Allergies Allergy Verified 07/01/18 11:54 - Home Medications Medication Instructions Recorded Confirmed Type HumuLIN 70/30 [HumuLIN 70/30 Vial] 25 units SC BID-AC #1 vial 07/04/18 Rx Omeprazole 20 mg PO DAILY #30 cap 07/04/18 Rx - History PMHx: DMI (13 years), HLD PSHx: Plastic Surgery on lateral aspect of R eye FHx: DM- Dad, GM, Brothers CRC-Dad Social: Drinks 5-6 beers once a month. He smokes marijuana and last was yesterday. He does smoke Tobacco - Review of Systems General: reports: fatigue. denies: fever/chills Respiratory: denies: shortness of breath Cardiovascular: denies: chest pain Gastrointestinal: reports: nausea, vomiting, constipation. denies: diarrhea Genitourinary: denies: dysuria - Vital signs BP: 141/90 HR: 88 RR: 14 Tmax: 97.8 Pox: 99% on RA Wt: [] FMR H&P: Results - Labs Result Diagrams: 12/18/18 15:24 12/18/18 15:24 Lab results: WBC 17.9 thou/uL (4.8-10.8) H 12/18/18 15:24 Hgb 19.9 g/dL (14.0-18.0) H 12/18/18 15:24 Hct 58.2 % (42.0-52.0) H 12/18/18 15:24 MCV 88.0 fL (78.0-98.0) 12/18/18 15:24 Plt Count 291 thou/uL (130-400) 12/18/18 15:24 Neutrophils % 87.6 % (42.0-75.0) H 12/18/18 15:24 ABG pH 7.36 (7.35-7.45) 12/18/18 16:30 ABG pCO2 29.1 mmHg (35.0-45.0) L 12/18/18 16:30 ABG pO2 86.5 mmHg (80.0-100.0) 12/18/18 16:30 VBG pCO2 41.8 mmHg (40.0-50.0) 12/18/18 15:36 VBG pO2 23.6 mmHg (35.0-45.0) L 12/18/18 15:36 Sodium 136 mmol/L (136-145) 12/18/18 15:24 Potassium 4.1 mmol/L (3.5-5.1) 12/18/18 15:24 Chloride 90 mmol/L (98-107) L 12/18/18 15:24 Carbon Dioxide 22 mmol/L (22-29) 12/18/18 15:24 BUN 26 mg/dL (8.9-20.6) H 12/18/18 15:24 Creatinine 1.79 mg/dL (0.7-1.3) H 12/18/18 15:24 Glucose 375 mg/dL (70-105) H 12/18/18 15:24 Lactic Acid 2.0 mmol/L (0.5-2.2) 12/18/18 15:24 Calcium 10.2 mg/dL (7.8-10.44) 12/18/18 15:24 Total Bilirubin 1.0 mg/dL (0.2-1.2) 12/18/18 15:24 AST 11 U/L (5-34) 12/18/18 15:24 ALT 16 U/L (8-55) 12/18/18 15:24 Alkaline Phosphatase 118 U/L (40-150) 12/18/18 15:24 Serum Total Protein 8.5 g/dL (6.0-8.3) H 12/18/18 15:24 Albumin 5.0 g/dL (3.5-5.0) 12/18/18 15:24 FMR H&P: Upper Level - Plan Date/Time: 12/18/18 3126 I, [], have evaluated this patient and agree with findings/plan as outlined by electrical intern resident. Pertinent changes/additions are listed here.
[2018-12-18] MEDS ORDERED: Promethazine HCl 25 MG/ML VIAL ONE (17:11)
[2018-12-18 18:30] LABS: Bilirubin Negative (Negative); Blood, Urine Negative (Negative); Clarity Clear (Clear); Glucose, Urine (Dipstick) Greater than 1000 mg/dL (Negative); Leukocyte Negative Leu/uL (Negative); Nitrite Negative (Negative); Protein, Urine (Dipstick) 20 mg/dL (Neg-Trace); Urobilinogen Normal mg/dL (Less than 2)
[2018-12-18] MEDS ORDERED: Ondansetron ODT 4 MG TAB SL PRN (19:11)
[2018-12-18] MEDS ORDERED: Ondansetron PF 4 MG/2 ML Vial IVP PRN (19:11)
[2018-12-18] MEDS ORDERED: Sodium Chloride 0.9% 1,000 ML IV SCH (19:11)
[2018-12-18] MEDS ORDERED: Dextrose 5% in Water 1,000 ML IV PRN (19:55)
[2018-12-18] MEDS ORDERED: Dextrose 50% Abboject 50 ML SYRINGE SLOW IVP PRN (19:55)
--- NOTE | 2018-12-18 23:34 | PDOC.EVN ---
Event Note - Event Note Event Note: H&P [id number]
[2018-12-19 00:22] LABS: ALT (SGPT) 10 U/L (8-55); AST (SGOT) 9 U/L (5-34); Albumin 3.6 g/dL (3.5-5.0); Alkaline Phosphatase 76 U/L (40-150); Anion Gap 15 mmol/L (10-20); BUN (Urea Nitrogen) 19 mg/dL (8.9-20.6); Bilirubin, Total 0.7 mg/dL (0.2-1.2); Calc. Creatinine Clearance 104 mL/min (70-130); Calcium 8.3 mg/dL (7.8-10.44); Carbon Dioxide 24 mmol/L (22-29); Chloride 102 mmol/L (98-107); Estimated GFR-MDRD 67; Globulin 2.4 g/dL (2.4-3.5); Glucose 193 mg/dL (70-105); Potassium 3.2 mmol/L (3.5-5.1); Sodium 138 mmol/L (136-145)
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
[2018-12-19] MEDS: HumaLOG 300 UNITS/3 ML VIAL SC PRN ×4 (06:50→20:05)
[2018-12-19] MEDS: Famotidine/PF 20 mg/2ml Vial SLOW IVP SCH ×2 (08:08→20:07)
--- NOTE | 2018-12-19 08:37 | PDOC.HOSPP ---
- Subjective Encounter Date: 12/19/18 Encounter Time: 08:33 Subjective: 38 y/o male with DM admitted with intractable nausea and vomiting associated with generalized weakness. Feeling better with IVF. Denied loose stools, abdominal pain, dizziness, fever or chest pain. symptoms reportedly started while working in the sun. - Objective Vital Signs & Weight: Vital Signs (12 hours) Temp Pulse Resp BP BP Pulse Ox 12/19/18 07:48 98.2 F 68 16 139/81 96 12/19/18 04:44 99.0 F 74 20 116/73 98 12/19/18 00:00 99.6 F 87 20 118/71 12/18/18 23:29 99.4 F 77 20 118/75 Weight Weight 196 lb 3 oz I&O: 12/18/18 12/19/18 12/20/18 06:59 06:59 06:59 Intake Total 1800 Balance 1800 Result Diagrams: 12/18/18 15:24 12/18/18 23:50 Additional Labs: Accuchecks 12/19/18 12/18/18 12/18/18 04:46 19:21 18:15 POC Glucose 226 H 185 H 225 H 12/18/18 12/18/18 12/18/18 17:13 15:52 15:15 POC Glucose 294 H 352 H 408 H Hospitalist ROS - Medication Medications: Active Medications Generic Name Dose Route Start Last Admin Trade Name Freq PRN Reason Stop Dose Admin Famotidine 20 mg 12/19/18 09:00 12/19/18 08:08 Pepcid SLOW IVP 20 mg BID DASH Administration Insulin Human Lispro 0 units 12/18/18 19:55 12/19/18 06:50 Humalog SC 4 unit .MODERATE SLIDING SC PRN Administration Moderate Correctional Scale - Exam General Appearance: awake alert Eye: anicteric sclera ENT: normocephalic atraumatic Neck: supple, symmetric, no JVD Heart: RRR, no murmur Respiratory: CTAB, no wheezes, no rales, no ronchi, normal chest expansion Gastrointestinal: soft, non-tender, non-distended, normal bowel sounds Extremities: no cyanosis, no clubbing, no edema Neurological: cranial nerve grossly intact, no focal deficits Musculoskeletal: normal tone, no muscle wasting Psychiatric: normal affect, A&O x 3 Hosp A/P (1) OSWALDO (acute kidney injury) Code(s): N17.9 - ACUTE KIDNEY FAILURE, UNSPECIFIED Status: Acute (2) Uncontrolled diabetes mellitus Code(s): E11.65 - TYPE 2 DIABETES MELLITUS WITH HYPERGLYCEMIA Status: Acute (3) Nausea and vomiting Code(s): R11.2 - NAUSEA WITH VOMITING, UNSPECIFIED Status: Acute (4) Hypokalemia Code(s): E87.6 - HYPOKALEMIA Status: Acute (5) SIRS (systemic inflammatory response syndrome) Code(s): R65.10 - SIRS OF NON-INFECTIOUS ORIGIN W/O ACUTE ORGAN DYSFUNCTION Status: Acute - Plan Change IVF to LR Replete serum potassium. Get serum magnesium and replete as needed Advance diet as tolerated. antiemetic as needed. Continue insulin therapy and adjust as needed to get adequate glycemic control. Get bha1c
[2018-12-19] MEDS: Lactated Ringer's 1,000 ML IV SCH ×2 (08:55→17:09)
[2018-12-19] MEDS ORDERED: Prevnar 13-Val Conj/PF 0.5 ML SYRINGE IM ONE (09:00)
[2018-12-19 09:01] LABS: #Lymphocytes 1.3 thou/uL (1.20-3.40); #Monocytes 0.8 thou/uL (0.11-0.59); #Neutrophils 13.6 thou/uL (1.40-6.50); %Basophils 0.1 % (0.0-1.0); %Eosinophils 0.1 % (0.0-10.0); %Lymphocytes 8.5 % (21.0-51.0); %Monocytes 5.1 % (0.0-10.0); %Neutrophils 86.2 % (42.0-75.0); Hemoglobin 16.5 g/dL (14.0-18.0); Mean Corpuscular HGB CONC 34.2 g/dL (32.0-36.0); Mean Corpuscular Hemoglobin 30.1 pg (27.0-31.0); Mean Corpuscular Volume 88.2 fL (78.0-98.0); Mean Platelet Volume 8.5 fL (7.4-10.4); Platelet Count 225 thou/uL (130-400); RBC Distribution Width 11.9 % (11.5-14.5); Red Blood Cell (RBC) Count 5.48 mill/uL (4.70-6.10); White Blood Cell (WBC) Count 15.7 thou/uL (4.8-10.8)
[2018-12-19 09:13] LABS: Hemoglobin A1c 12.9 % (4.0-6.0)
[2018-12-19 09:15] LABS: Anion Gap 20 mmol/L (10-20); BUN (Urea Nitrogen) 19 mg/dL (8.9-20.6); Calc. Creatinine Clearance 106 mL/min (70-130); Calcium 8.4 mg/dL (7.8-10.44); Carbon Dioxide 18 mmol/L (22-29); Chloride 99 mmol/L (98-107); Estimated GFR-MDRD 68; Glucose 273 mg/dL (70-105); Potassium 3.7 mmol/L (3.5-5.1); Sodium 133 mmol/L (136-145)
[2018-12-19] MEDS: Potassium Chloride 20 MEQ TAB PO SCH ×2 (11:58→17:06)
[2018-12-19 15:18] VITALS: BMI 29.0
[2018-12-20] MEDS: Lactated Ringer's 1,000 ML IV SCH (04:55)
[2018-12-20] MEDS: HumaLOG 300 UNITS/3 ML VIAL SC PRN ×2 (04:58→12:13)
[2018-12-20 05:56] LABS: #Basophils 0.1 thou/uL (0.0-0.2); #Eosinphils 0.1 thou/uL (0.0-0.7); #Lymphocytes 2.2 thou/uL (1.20-3.40); #Monocytes 0.7 thou/uL (0.11-0.59); #Neutrophils 6.9 thou/uL (1.40-6.50); %Basophils 0.8 % (0.0-1.0); %Eosinophils 0.8 % (0.0-10.0); %Lymphocytes 21.7 % (21.0-51.0); %Monocytes 7.2 % (0.0-10.0); %Neutrophils 69.5 % (42.0-75.0); Hemoglobin 16.6 g/dL (14.0-18.0); Mean Corpuscular HGB CONC 34.3 g/dL (32.0-36.0); Mean Corpuscular Hemoglobin 30.3 pg (27.0-31.0); Mean Corpuscular Volume 88.4 fL (78.0-98.0); Mean Platelet Volume 8.5 fL (7.4-10.4); Platelet Count 214 thou/uL (130-400); RBC Distribution Width 11.7 % (11.5-14.5); Red Blood Cell (RBC) Count 5.47 mill/uL (4.70-6.10)
[2018-12-20 06:25] LABS: Anion Gap 18 mmol/L (10-20); BUN (Urea Nitrogen) 15 mg/dL (8.9-20.6); Calc. Creatinine Clearance 100 mL/min (70-130); Calcium 8.7 mg/dL (7.8-10.44); Carbon Dioxide 19 mmol/L (22-29); Chloride 98 mmol/L (98-107); Estimated GFR-MDRD 64; Glucose 329 mg/dL (70-105); Potassium 4.3 mmol/L (3.5-5.1); Sodium 131 mmol/L (136-145)
[2018-12-20] MEDS: Famotidine/PF 20 mg/2ml Vial SLOW IVP SCH (07:47)
[2018-12-20] MEDS ORDERED: Lactated Ringer's 1,000 ML IV SCH (08:36)
[2018-12-20] MEDS ORDERED: HumuLIN 70/30 (300 UNITS/3 ML VIAL) SC SCH (09:00)
[2018-12-20] MEDS ORDERED: Insulin Glargine 36 UNITS in Pre-Filled Syringe 1 EACH SC SCH (09:00)
--- NOTE | 2018-12-20 12:46 | PDOC.EVN ---
Event Note - Event Note Event Note: Discharged. # [id number]
--- NOTE | 2018-12-20 13:00 | DIS ---
DATE OF ADMISSION: 12/18/2018 DATE OF DISCHARGE: 12/20/2018 [facility] DISCHARGE DIAGNOSES: 1. Intractable nausea and vomiting. 2. Uncontrolled diabetes mellitus with hyperglycemia. 3. Hypokalemia. 4. Hyponatremia. 5. Systemic inflammatory response syndrome. 6. Acute kidney injury. HOSPITAL COURSE: A 38-year-old male with known history of diabetes, admitted with intractable nausea and vomiting associated with generalized weakness. The patient was found to have elevated blood sugar above 600 with no ketoacidosis. The patient reportedly started having nausea and vomiting after walking in the sun. There was no associated fever, loose stool, abdominal pain, dizziness, or chest pain. The patient was found to be tachycardic with elevated creatinine on presentation. He was treated with IV fluid, antiemetics as well as insulin therapy with improvement in both hyperglycemia, nausea and vomiting. He was later restarted on oral intake, which was well tolerated. Further evaluation with hemoglobin A1c showed 12.7. Insulin therapy was adjusted appropriately. Transition into Lantus was discussed, but due to insurance issues, the patient was continued on his usual 70/30 insulin. However, he was instructed to add lunchtime regular insulin to get adequate blood glucose control. He also was started on metformin b.i.d. The patient remained stable and was subsequently discharged home. PHYSICAL EXAMINATION: VITAL SIGNS: Temperature 98.5, pulse 92, respiratory rate 16, SpO2 of 99% on room air, and blood pressure is 113/69. GENERAL: Young male, in no distress. Afebrile. Anicteric. Acyanotic. HEENT: Normocephalic, atraumatic. Oral mucosa is moist. CARDIOVASCULAR: Regular rhythm and rate with normal heart sounds 1 and 2. RESPIRATORY: Good air entry bilaterally with no crackle or rhonchi or use of accessory muscles. GASTROINTESTINAL: Full, soft, nontender, and nondistended with normal bowel sounds. EXTREMITIES: Grossly normal looking, atraumatic with no edema or erythema. CENTRAL NERVOUS SYSTEM: Conscious and alert oriented x3 with appropriate mental status. DISCHARGE DISPOSITION: Home. DISCHARGE CONDITION: Improved/stable. DISCHARGE MEDICATIONS: See discharge med rec. FOLLOWUP: With [facility] on Saturday, December 22, 2018. TIME SPENT: Discharge took more than 38 minutes. Job ID: [id number]
[2018-12-20 13:36] VITALS: BP 132/88; TEMP 98.4
== END 2018-12-20 13:35 | disposition home or self-care (01) ==
LOC: ERS 15:09 → T4-B 17:42
PROVIDERS: ADMIT Internal Medicine; ATTEND Internal Medicine
DX: E10.65 Type 1 diabetes mellitus with hyperglycemia (principal); N17.9 Acute kidney failure, unspecified; E86.0 Dehydration; E78.5 Hyperlipidemia, unspecified; F12.10 Cannabis abuse, uncomplicated; R65.10 Systemic inflammatory response syndrome (SIRS) of non-infectious origin without acute organ dysfunction; E87.6 Hypokalemia; E87.1 Hypo-osmolality and hyponatremia
CPT/HCPCS: 36415; 36416; 80048; 80053; 81003; 82010; 82330; 82803; 82805; 83036; 83605; 83735; 85025; 90471; 90670; 93005; 96361; 96365; 96367; 96375; 96376; G0009; G0378; J1200; J1815; J2405; J2550; J2765; S0028

== ENCOUNTER 2019-01-06 13:28 | Inpatient (IN) | payer SELFPAY ==
[2019-01-06 14:15] LABS: Hemoglobin 17.7 g/dL (14.0-18.0); Mean Corpuscular HGB CONC 34.7 g/dL (32.0-36.0); Mean Corpuscular Hemoglobin 30.6 pg (27.0-31.0); Mean Corpuscular Volume 88.3 fL (78.0-98.0); Mean Platelet Volume 7.9 fL (7.4-10.4); Platelet Count 309 thou/uL (130-400); RBC Distribution Width 12.5 % (11.5-14.5); Red Blood Cell (RBC) Count 5.77 mill/uL (4.70-6.10); White Blood Cell (WBC) Count 21.1 thou/uL (4.8-10.8)
[2019-01-06 14:24] LABS: Base Excess-Venous -16.9 mmol/L (-2.0 to 3.0); Bicarbonate (HCO3v) 7.8 mmol/L (22.0-28.0); CO2 Tension (PvCO2) 18.8 mmHg (40.0-50.0); Calcium, Ionized 0.83 mmol/L (See Comments:); Chloride 102 mmol/L (98-107); Hemoglobin - Calc 19.2 g/dL (14.0-18.0); Potassium 4.7 mmol/L (3.5-5.1); Sodium 126 mmol/L (138-145); T. Carbon Dioxide 8.4 mmol/L (22.0-28.0); vO2 Saturation-calc 98.6 % (60.0-85.0)
[2019-01-06 14:37] LABS: Band 9 % (5-11); Lymphocytes 1 % (21-51); MDiff Complete? YES; Monocytes 2 % (0-10); Neutrophil 88 % (42-75); Platelet Morphology Comment Appears Adequate
[2019-01-06 14:39] LABS: ALT (SGPT) 14 U/L (8-55); AST (SGOT) 9 U/L (5-34); Albumin 4.6 g/dL (3.5-5.0); Alkaline Phosphatase 142 U/L (40-110); Anion Gap 33 mmol/L (10-20); BUN (Urea Nitrogen) 20 mg/dL (8.9-20.6); Bilirubin, Total 0.5 mg/dL (0.2-1.2); Calc. Creatinine Clearance 0 mL/min (70-130); Calcium 9.7 mg/dL (7.8-10.44); Carbon Dioxide 11 mmol/L (22-29); Chloride 89 mmol/L (98-107); Estimated GFR-MDRD 36; Globulin 4.4 g/dL (2.4-3.5); Glucose 526 mg/dL (70-105); Potassium 4.3 mmol/L (3.5-5.1); Sodium 129 mmol/L (136-145)
[2019-01-06 14:55] LABS: Bacteria/HPF None Seen HPF (None Seen); Bilirubin Negative (Negative); Blood, Urine Negative (Negative); Clarity Clear (Clear); Glucose, Urine (Dipstick) Greater than 1000 mg/dL (Negative); Leukocyte Negative Leu/uL (Negative); Nitrite Negative (Negative); Protein, Urine (Dipstick) 30 mg/dL (Neg-Trace); RBC/HPF 0-3 HPF (0-3); Squamous Epithelial 0-3 HPF (0-3); Urobilinogen Normal mg/dL (Less than 2); WBC/HPF 0-3 HPF (0-3)
[2019-01-06] MEDS ORDERED: Clindamycin/D5W 600 mg/50 ml Premix Bag ONE (15:07)
--- NOTE | 2019-01-06 15:20 | CT ---
CT FACIAL BONES WITH IV CONTRAST: HISTORY: Pain and swelling in jaw on the right. FINDINGS: Soft tissue windows show subcutaneous edema and increased soft tissue density along the inferior aspe ct of the anterior mandible on the right, near the symphysis. This suggests inflammatory or infectiou s change. There is low attenuation along the buccal side of the body of the mandible on the right, wh ich could represent edema or early buccal abscess collection. Review of teeth reveals lucency along the roots of the right canine, which appears to exhibit cortica l disruption along the buccal surface and may represent the origin of this abscess. There is also abn ormal lucency surrounding the roots of the right mandibular canine; however, no significant inflammat ory change is seen at this site. No other evidence of periapical abscess or cystic change in the mandibular teeth. There has been extr action of the mandibular molars on the right. The paranasal sinuses and mastoids are well aerated. The visualized parotid glands and submandibular glands are symmetric in size. There is haziness and e forest in the right subcutaneous tissues, which extends to the right submandibular gland. IMPRESSION: Inflammatory changes seen along the buccal side of the right mandible with low density along the gary in of the mandible, which could represent edema or early abscess formation. The site of origin may re present the right canine, where there is lucency seen along its roots and possible cortical disruptio n along the buccal surface. Abnormal lucency also seen involving the roots of the right mandibular in cisor. Suggest dental or oral surgical consultation. POS: OFF
[2019-01-06] MEDS ORDERED: [UNRECOGNIZED DRUG - OTHER] IVPB SCH (15:45)
[2019-01-06] MEDS ORDERED: INSULIN REGULAR IVPB SCH (15:45)
[2019-01-06] MEDS ORDERED: ADMIXTURE FEE CHEMO IVPB SCH (15:45)
[2019-01-06] MEDS ORDERED: HYDROcodone/Acetaminophen 5/325 mg Tablet PO PRN (16:55)
[2019-01-06] MEDS ORDERED: Ondansetron PF 4 MG/2 ML Vial IVP PRN (16:55)
[2019-01-06] MEDS ORDERED: Ondansetron ODT 4 MG TAB PO PRN (16:55)
[2019-01-06] MEDS ORDERED: Bisacodyl 10 MG SUPP PR PRN (16:55)
[2019-01-06] MEDS ORDERED: NS 0.9% w/ 20 MEQ KCL 1,000 ML IV PRN ×2 (16:55)
[2019-01-06] MEDS ORDERED: Sodium Chloride 0.9% 1,000 ML IV PRN ×4 (16:55)
[2019-01-06] MEDS ORDERED: Acetaminophen 325 MG TAB PO PRN (16:55)
[2019-01-06] MEDS ORDERED: Senokot S 8.6-50 MG TAB PO PRN (16:55)
[2019-01-06] MEDS ORDERED: CCU Electrolyte Replacement 1 EACH IVPB ONE (16:55)
[2019-01-06] MEDS ORDERED: Dextrose 5 %-0.45 % NaCl 1,000 ML IV PRN (16:55)
[2019-01-06] MEDS ORDERED: Magnesium 2 GM/50 ML 2 GM in Premix Bag 1 BAG IVPB PRN (17:19)
[2019-01-06] MEDS ORDERED: Potassium Phosphate 15 MMOL in Sodium Chloride 0.9% 250 ML 250 ML IV PRN (17:19)
[2019-01-06] MEDS ORDERED: Potassium Phosphate 12 MMOL in Sodium Chloride 0.9% 250 ML 250 ML IV PRN (17:19)
[2019-01-06] MEDS ORDERED: Potassium Chloride 40 MEQ in Sodium Chloride 0.9% 250 ML 250 ML IVPB PRN (17:19)
[2019-01-06] MEDS ORDERED: Potassium Phosphate 9 MMOL in Sodium Chloride 0.9% 100 ML IVPB PRN (17:19)
[2019-01-06] MEDS ORDERED: Magnesium Oxide 400 MG TAB PO PRN ×2 (17:19)
[2019-01-06] MEDS ORDERED: PHOS-NAK 1 PKT PACK PO PRN ×2 (17:19)
[2019-01-06] MEDS ORDERED: Potassium Chloride 20 MEQ TAB PO PRN (17:19)
[2019-01-06] MEDS ORDERED: Potassium Chloride 40 MEQ in Premix Bag 1 BAG IVPB PRN (17:19)
[2019-01-06] MEDS ORDERED: CCU ELECTROLYTE REPLACEMENT PROTOCOL FS PRN (17:19)
[2019-01-06 18:03] LABS: Anion Gap 21 mmol/L (10-20); BUN (Urea Nitrogen) 15 mg/dL (8.9-20.6); Calc. Creatinine Clearance 0 mL/min (70-130); Carbon Dioxide 15 mmol/L (22-29); Chloride 99 mmol/L (98-107); Estimated GFR-MDRD 54; Glucose 287 mg/dL (70-105); Potassium 3.3 mmol/L (3.5-5.1); Sodium 132 mmol/L (136-145)
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
[2019-01-06] MEDS ORDERED: ISOVUE-370 76%-LOCM 1 ML ONE (20:44)
[2019-01-06 20:51] LABS: Anion Gap 18 mmol/L (10-20); BUN (Urea Nitrogen) 13 mg/dL (8.9-20.6); Calc. Creatinine Clearance 0 mL/min (70-130); Calcium 8.9 mg/dL (7.8-10.44); Carbon Dioxide 17 mmol/L (22-29); Chloride 99 mmol/L (98-107); Estimated GFR-MDRD 56; Glucose 248 mg/dL (70-105); Sodium 131 mmol/L (136-145)
[2019-01-06] MEDS ORDERED: Cefepime 2 GM VIAL ONE (21:27)
[2019-01-06] MEDS: Potassium Chloride 20 MEQ in Premix Bag 1 BAG IVPB PRN (23:18)
[2019-01-06] MEDS: D5 1/2 NS w/20 mEq KCL 1,000 ML IV PRN (23:18)
[2019-01-06] MEDS: Cefepime 2 GM in Sodium Chloride 0.9% 100 ML IVPB SCH (23:46)
[2019-01-07] MEDS: Potassium Chloride 20 MEQ in Premix Bag 1 BAG IVPB PRN ×3 (01:25→10:59)
[2019-01-07 01:33] LABS: Anion Gap 13 mmol/L (10-20); BUN (Urea Nitrogen) 10 mg/dL (8.9-20.6); Calc. Creatinine Clearance 106 mL/min (70-130); Calcium 8.9 mg/dL (7.8-10.44); Carbon Dioxide 20 mmol/L (22-29); Chloride 104 mmol/L (98-107); Estimated GFR-MDRD 71; Glucose 250 mg/dL (70-105); Potassium 3.2 mmol/L (3.5-5.1); Sodium 134 mmol/L (136-145)
[2019-01-07] MEDS: Clindamycin/D5W 900 MG in Premix Bag 1 BAG IVPB SCH ×3 (01:33→18:23)
[2019-01-07] MEDS: HUMULIN R 100 UNITS in Sodium Chloride 0.9% 100 ML IVPB SCH ×2 (01:52→09:35)
[2019-01-07] MEDS: Vancomycin HCl 1.25 GM in Sodium Chloride 0.9% 250 ML 300 ML IVPB SCH ×2 (02:57→16:27)
[2019-01-07] MEDS: D5 1/2 NS w/20 mEq KCL 1,000 ML IV PRN ×3 (03:02→10:59)
[2019-01-07 06:47] LABS: ALT (SGPT) 8 U/L (8-55); AST (SGOT) 9 U/L (5-34); Albumin 3.3 g/dL (3.5-5.0); Alkaline Phosphatase 94 U/L (40-110); Anion Gap 11 mmol/L (10-20); BUN (Urea Nitrogen) 8 mg/dL (8.9-20.6); Bilirubin, Total 0.4 mg/dL (0.2-1.2); Calc. Creatinine Clearance 0 mL/min (70-130); Calcium 8.6 mg/dL (7.8-10.44); Carbon Dioxide 21 mmol/L (22-29); Chloride 106 mmol/L (98-107); Estimated GFR-MDRD 88; Globulin 3.1 g/dL (2.4-3.5); Glucose 179 mg/dL (70-105); Potassium 3.2 mmol/L (3.5-5.1); Protein, Total 6.4 g/dL (6.0-8.3); Sodium 135 mmol/L (136-145)
[2019-01-07] MEDS: Famotidine/PF 20 mg/2ml Vial SLOW IVP SCH (09:07)
[2019-01-07] MEDS: Enoxaparin Sodium 30 MG/0.3 ML SYRINGE SC SCH (09:09)
[2019-01-07] MEDS: Cefepime 2 GM in Sodium Chloride 0.9% 100 ML IVPB SCH ×2 (09:09→20:15)
[2019-01-07] MEDS: Famotidine 20 MG TAB PO SCH (09:09)
[2019-01-07 09:11] LABS: #Lymphocytes 0.9 thou/uL (1.20-3.40); #Monocytes 1.4 thou/uL (0.11-0.59); #Neutrophils 15.7 thou/uL (1.40-6.50); %Basophils 0.1 % (0.0-1.0); %Eosinophils 0.1 % (0.0-10.0); %Lymphocytes 4.7 % (21.0-51.0); %Monocytes 7.9 % (0.0-10.0); %Neutrophils 87.1 % (42.0-75.0); Mean Corpuscular HGB CONC 34.3 g/dL (32.0-36.0); Mean Corpuscular Hemoglobin 29.3 pg (27.0-31.0); Mean Corpuscular Volume 85.3 fL (78.0-98.0); Mean Platelet Volume 7.5 fL (7.4-10.4); Platelet Count 260 thou/uL (130-400); RBC Distribution Width 12.4 % (11.5-14.5); Red Blood Cell (RBC) Count 4.76 mill/uL (4.70-6.10)
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
[2019-01-07] MEDS ORDERED: Dextrose 50% Abboject 50 ML SYRINGE SLOW IVP PRN (11:39)
[2019-01-07] MEDS ORDERED: Dextrose 5% in Water 1,000 ML IV PRN (11:39)
[2019-01-07] MEDS ORDERED: HumaLOG 300 UNITS/3 ML VIAL SC PRN (11:39)
--- NOTE | 2019-01-07 11:43 | PDOC.HOSPP ---
- Subjective Subjective: Seen and examined. States that jaw is less swollen and painful. Denies fever or chills. Overall patient states he is feeling much better. DKA resolved. - Objective Vital Signs & Weight: Vital Signs (12 hours) Temp Pulse Ox 01/07/19 11:17 97.4 F L 01/07/19 07:43 99 01/07/19 07:26 97.7 F 01/07/19 03:29 97.3 F L Weight Weight 2.984 oz Most Recent Monitor Data Heart Rate from ECG 90 NIBP 127/86 NIBP BP-Mean 99 Respiration from ECG 7 SpO2 99 I&O: 01/06/19 01/07/19 01/08/19 06:59 06:59 06:59 Intake Total 2740 1463 Output Total 1000 850 Balance 1740 613 Result Diagrams: 01/07/19 08:38 01/07/19 05:58 Additional Labs: Accuchecks 01/07/19 01/07/19 01/07/19 11:32 10:51 09:34 POC Glucose 127 H 133 H 123 H 01/07/19 01/07/19 01/07/19 08:27 07:11 06:03 POC Glucose 176 H 176 H 184 H 01/07/19 01/07/19 01/07/19 05:10 04:13 03:04 POC Glucose 180 H 208 H 237 H 01/07/19 01/07/19 01/07/19 01:57 01:01 00:07 POC Glucose 233 H 219 H 265 H 01/06/19 01/06/19 01/06/19 22:54 21:34 20:08 POC Glucose 225 H 232 H 233 H 01/06/19 01/06/19 01/06/19 19:09 18:09 17:32 POC Glucose 227 H 225 H 262 H 01/06/19 01/06/19 01/06/19 16:05 15:05 13:35 POC Glucose 404 H 426 H Greater than 550 H* Radiology Reviewed by me: Yes (CT facial bones) Hospitalist ROS - Review of Systems All other systems reviewed; all pertinent +/- noted in HPI/Subj - Medication Medications: Active Medications Generic Name Dose Route Start Last Admin Trade Name Freq PRN Reason Stop Dose Admin Enoxaparin Sodium 30 mg 01/07/19 09:00 01/07/19 09:09 Lovenox SC 30 mg 0900 DASH Administration Famotidine 20 mg 01/07/19 09:00 01/07/19 09:07 Pepcid SLOW IVP 20 mg DAILY DASH Administration Famotidine 20 mg 01/07/19 09:00 01/07/19 09:09 Pepcid PO Not Given DAILY DASH Clindamycin Phosphate/Dextrose 50 mls @ 100 mls/hr 01/07/19 02:00 01/07/19 10 :58 900 mg/ Device IVPB 50 mls 0200,1000,1800 DASH Administration Cefepime HCl 2 gm/ Sodium 100 mls @ 200 mls/hr 01/06/19 21:00 01/07/19 09:09 Chloride IVPB 100 mls Q12HR DASH Administration Vancomycin HCl 1.25 gm/ Sodium 300 mls @ 200 mls/hr 01/07/19 03:00 01/07/19 02:57 Chloride IVPB 300 mls 0300,1500 DASH Administration Magnesium Sulfate 1 gm/ Sodium 102 mls @ 102 mls/hr 01/06/19 17:19 01/06/19 23:29 Chloride IV 102 mls PRN PRN Administration MAG LEVEL 1.4 - 2.0 Potassium Chloride 20 meq/ 100 mls @ 50 mls/hr 01/06/19 23:00 01/07/19 10:59 Device IVPB 100 mls Q2H PRN Administration FOR SERUM K+ 2.5-3.5 Ondansetron HCl 4 mg 01/06/19 16:55 01/07/19 01:28 Zofran IVP 4 mg Q6H PRN Administration Nausea/Vomiting Sodium Chloride 10 ml 01/07/19 09:00 01/07/19 09:09 Flush - Normal Saline IVF Not Given Q12HR DASH - Exam General Appearance: NAD, awake alert Eye: anicteric sclera ENT: normocephalic atraumatic, moist mucosa Neck: supple, symmetric, no lymphadenopathy Heart: RRR, no murmur, no gallops, no rubs Respiratory: CTAB, no wheezes, no rales, no ronchi Gastrointestinal: soft, non-tender, non-distended, no guarding, no rigidity Extremities: no edema Skin: no lesions, no rashes Neurological: cranial nerve grossly intact, normal sensation to touch, no focal deficits Musculoskeletal: normal strength, no muscle wasting Psychiatric: normal affect, A&O x 3 Hosp A/P (1) Facial cellulitis Code(s): L03.211 - CELLULITIS OF FACE Status: Acute (2) Dental abscess Code(s): K04.7 - PERIAPICAL ABSCESS WITHOUT SINUS Status: Acute (3) OSWALDO (acute kidney injury) Code(s): N17.9 - ACUTE KIDNEY FAILURE, UNSPECIFIED Status: Acute (4) DKA, type 1 Status: Chronic (5) Diabetic keto-acidosis Code(s): E13.10 - OTH DIABETES MELLITUS WITH KETOACIDOSIS WITHOUT COMA Status : Resolved (6) Nausea and vomiting Code(s): R11.2 - NAUSEA WITH VOMITING, UNSPECIFIED Status: Acute (7) SIRS (systemic inflammatory response syndrome) Code(s): R65.10 - SIRS OF NON-INFECTIOUS ORIGIN W/O ACUTE ORGAN DYSFUNCTION Status: Acute (8) Uncontrolled diabetes mellitus Code(s): E11.65 - TYPE 2 DIABETES MELLITUS WITH HYPERGLYCEMIA Status: Chronic - Plan Plan: IMCU Oral maxillofacial surgery consult, recommendations appreciated Continue IV antibiotics Follow cultures, de escalate ABX when able DKA resolving, transition to long and short acting insulin OSWALDO resolved, no indications for HD or nephrology consultation Hold Metformin in this acute phase and with OSWALDO Replace electrolytes as needed Symptomatic control for N/v
[2019-01-07] MEDS ORDERED: HumuLIN 70/30 (300 UNITS/3 ML VIAL) SC SCH (12:45)
[2019-01-07 14:49] VITALS: BMI 26.8
[2019-01-07] MEDS: HumuLIN 70/30 (300 UNITS/3 ML VIAL) SC SCH (20:15)
[2019-01-07] MEDS ORDERED: FLU VACC QS2019-20(6MOS UP)/PF 60 MCG/0.5 ML SYRINGE IM ONE (21:00)
[2019-01-08] MEDS: Clindamycin/D5W 900 MG in Premix Bag 1 BAG IVPB SCH ×3 (02:33→17:35)
[2019-01-08 02:43] LABS: Vancomycin, Trough 5.4 ug/mL
[2019-01-08] MEDS: Vancomycin HCl 1.25 GM in Sodium Chloride 0.9% 250 ML 300 ML IVPB SCH ×3 (03:26→21:01)
[2019-01-08 06:38] LABS: #Lymphocytes 1.5 thou/uL (1.20-3.40); #Monocytes 0.8 thou/uL (0.11-0.59); #Neutrophils 6.4 thou/uL (1.40-6.50); %Basophils 0.5 % (0.0-1.0); %Eosinophils 0.2 % (0.0-10.0); %Lymphocytes 16.9 % (21.0-51.0); %Monocytes 9.1 % (0.0-10.0); %Neutrophils 73.3 % (42.0-75.0); Hemoglobin 14.5 g/dL (14.0-18.0); Mean Corpuscular HGB CONC 34.8 g/dL (32.0-36.0); Mean Corpuscular Hemoglobin 30.6 pg (27.0-31.0); Mean Platelet Volume 7.4 fL (7.4-10.4); Platelet Count 278 thou/uL (130-400); RBC Distribution Width 12.5 % (11.5-14.5); Red Blood Cell (RBC) Count 4.74 mill/uL (4.70-6.10); White Blood Cell (WBC) Count 8.8 thou/uL (4.8-10.8)
[2019-01-08 06:44] LABS: Anion Gap 11 mmol/L (10-20); BUN (Urea Nitrogen) 6 mg/dL (8.9-20.6); Calc. Creatinine Clearance 158 mL/min (70-130); Calcium 8.7 mg/dL (7.8-10.44); Carbon Dioxide 25 mmol/L (22-29); Chloride 103 mmol/L (98-107); Estimated GFR-MDRD Greater than 90; Glucose 185 mg/dL (70-105); Potassium 3.2 mmol/L (3.5-5.1); Sodium 136 mmol/L (136-145)
[2019-01-08] MEDS ORDERED: HumuLIN 70/30 (300 UNITS/3 ML VIAL) SC SCH (09:00)
[2019-01-08] MEDS: Enoxaparin Sodium 30 MG/0.3 ML SYRINGE SC SCH (09:03)
[2019-01-08] MEDS: Cefepime 2 GM in Sodium Chloride 0.9% 100 ML IVPB SCH ×2 (09:03→21:00)
[2019-01-08] MEDS: Famotidine/PF 20 mg/2ml Vial SLOW IVP SCH (09:03)
[2019-01-08] MEDS: Famotidine 20 MG TAB PO SCH (09:04)
--- NOTE | 2019-01-08 15:22 | PDOC.HOSPP ---
- Subjective Subjective: Seen and examined. Patient clinically improving. WBC count normalized. Renal function normalized. Preliminary wound culture demonstrating Staphylococcus aureus, sensitivities pending. Patient overall states that he is feeling much better. Patient's family at bedside, many questions were asked, all answered in detail. - Objective Vital Signs & Weight: Vital Signs (12 hours) Temp Pulse Resp BP Pulse Ox 01/08/19 14:56 100 01/08/19 13:38 98.7 F 74 18 148/94 H 100 01/08/19 11:39 97.4 F L 01/08/19 08:00 99 01/08/19 07:21 97.6 F 01/08/19 03:54 97.5 F L Weight Admit Weight 187 lb Weight 187 lb Most Recent Monitor Data Heart Rate from ECG 62 NIBP 118/88 NIBP BP-Mean 98 Respiration from ECG 12 SpO2 100 I&O: 01/07/19 01/08/19 01/09/19 06:59 06:59 06:59 Intake Total 2740 2841 Output Total 1000 2850 Balance 1740 -9 Result Diagrams: 01/08/19 06:04 01/08/19 06:04 Additional Labs: Accuchecks 01/08/19 01/08/19 01/07/19 10:48 05:57 20:24 POC Glucose 178 H 169 H 161 H 01/07/19 17:01 POC Glucose 145 H Hospitalist ROS - Review of Systems All other systems reviewed; all pertinent +/- noted in HPI/Subj - Medication Medications: Active Medications Generic Name Dose Route Start Last Admin Trade Name Freq PRN Reason Stop Dose Admin Enoxaparin Sodium 30 mg 01/07/19 09:00 01/08/19 09:03 Lovenox SC 30 mg 0900 DASH Administration Famotidine 20 mg 01/07/19 09:00 01/08/19 09:03 Pepcid SLOW IVP 20 mg DAILY DASH Administration Famotidine 20 mg 01/07/19 09:00 01/08/19 09:04 Pepcid PO Not Given DAILY DASH Clindamycin Phosphate/Dextrose 50 mls @ 100 mls/hr 01/07/19 02:00 01/08/19 09 :04 900 mg/ Device IVPB 50 mls 0200,1000,1800 DASH Administration Cefepime HCl 2 gm/ Sodium 100 mls @ 200 mls/hr 01/06/19 21:00 01/08/19 09:03 Chloride IVPB 100 mls Q12HR DASH Administration Magnesium Sulfate 1 gm/ Sodium 102 mls @ 102 mls/hr 01/06/19 17:19 01/06/19 23:29 Chloride IV 102 mls PRN PRN Administration MAG LEVEL 1.4 - 2.0 Potassium Chloride 20 meq/ 100 mls @ 50 mls/hr 01/06/19 23:00 01/07/19 10:59 Device IVPB 100 mls Q2H PRN Administration FOR SERUM K+ 2.5-3.5 Vancomycin HCl 1.25 gm/ Sodium 300 mls @ 200 mls/hr 01/08/19 11:00 01/08/19 11:28 Chloride IVPB 300 mls 0300,1100,1900 DASH Administration Insulin Human Isoph/Insulin Regular 30 units 01/08/19 09:00 01/08/19 09:03 Humulin 70/30 SC 30 unit QAM DASH Administration Insulin Human Isoph/Insulin Regular 30 units 01/07/19 21:00 01/07/19 20:15 Humulin 70/30 SC 30 unit QPM DASH Administration Ondansetron HCl 4 mg 01/06/19 16:55 01/07/19 01:28 Zofran IVP 4 mg Q6H PRN Administration Nausea/Vomiting Sodium Chloride 10 ml 01/07/19 09:00 01/08/19 09:04 Flush - Normal Saline IVF 10 ml Q12HR DASH Administration - Exam General Appearance: NAD, awake alert Eye: anicteric sclera ENT: normocephalic atraumatic, moist mucosa Neck: supple, symmetric, no lymphadenopathy Heart: RRR, no murmur, no gallops Respiratory: CTAB, no wheezes, no rales, no ronchi Gastrointestinal: soft, non-tender, non-distended, normal bowel sounds, no palpable masses, no guarding, no rigidity Extremities: no edema Skin: no lesions, no rashes Skin - other findings: Skin lesions on the chin are now scabed over and healing Neurological: cranial nerve grossly intact, normal sensation to touch, no new deficit Musculoskeletal: no muscle wasting Psychiatric: normal affect, A&O x 3 Hosp A/P (1) Facial cellulitis Code(s): L03.211 - CELLULITIS OF FACE Status: Acute (2) Dental abscess Code(s): K04.7 - PERIAPICAL ABSCESS WITHOUT SINUS Status: Acute (3) OSWALDO (acute kidney injury) Code(s): N17.9 - ACUTE KIDNEY FAILURE, UNSPECIFIED Status: Acute (4) DKA, type 1 Status: Chronic (5) Diabetic keto-acidosis Code(s): E13.10 - OTH DIABETES MELLITUS WITH KETOACIDOSIS WITHOUT COMA Status : Resolved (6) Nausea and vomiting Code(s): R11.2 - NAUSEA WITH VOMITING, UNSPECIFIED Status: Acute (7) SIRS (systemic inflammatory response syndrome) Code(s): R65.10 - SIRS OF NON-INFECTIOUS ORIGIN W/O ACUTE ORGAN DYSFUNCTION Status: Acute (8) Uncontrolled diabetes mellitus Code(s): E11.65 - TYPE 2 DIABETES MELLITUS WITH HYPERGLYCEMIA Status: Chronic - Plan Plan: IMCU, stable for D/g this afternoon Oral maxillofacial surgery consult, recommendations appreciated Continue IV antibiotics Follow cultures, de escalate ABX when able Prelim cx with s.aureus, sensitivity pending DKA resolved, transited to long and short acting insulin OSWALDO resolved, no indications for HD or nephrology consultation Hold Metformin in this acute phase and with OSWALDO Replace electrolytes as needed Symptomatic control for N/v
[2019-01-08] MEDS: HumaLOG 300 UNITS/3 ML VIAL SC PRN (17:46)
[2019-01-08] MEDS: HumuLIN 70/30 (300 UNITS/3 ML VIAL) SC SCH (20:29)
[2019-01-08] MEDS: diphenhydrAMINE 50 MG/ML VIAL IVP PRN (21:01)
[2019-01-09] MEDS: Clindamycin/D5W 900 MG in Premix Bag 1 BAG IVPB SCH (01:03)
[2019-01-09 02:09] LABS: #Basophils 0.1 thou/uL (0.0-0.2); #Lymphocytes 1.8 thou/uL (1.20-3.40); #Monocytes 0.5 thou/uL (0.11-0.59); #Neutrophils 3.9 thou/uL (1.40-6.50); %Eosinophils 0.7 % (0.0-10.0); %Lymphocytes 28.3 % (21.0-51.0); Hemoglobin 14.5 g/dL (14.0-18.0); Mean Corpuscular HGB CONC 35.9 g/dL (32.0-36.0); Mean Corpuscular Hemoglobin 31.1 pg (27.0-31.0); Mean Corpuscular Volume 86.6 fL (78.0-98.0); Mean Platelet Volume 6.9 fL (7.4-10.4); Platelet Count 279 thou/uL (130-400); RBC Distribution Width 12.3 % (11.5-14.5); Red Blood Cell (RBC) Count 4.68 mill/uL (4.70-6.10); White Blood Cell (WBC) Count 6.2 thou/uL (4.8-10.8)
[2019-01-09 02:39] LABS: Anion Gap 9 mmol/L (10-20); BUN (Urea Nitrogen) 7 mg/dL (8.9-20.6); Calc. Creatinine Clearance 156 mL/min (70-130); Calcium 8.7 mg/dL (7.8-10.44); Carbon Dioxide 31 mmol/L (22-29); Chloride 97 mmol/L (98-107); Estimated GFR-MDRD Greater than 90; Glucose 287 mg/dL (70-105); Sodium 134 mmol/L (136-145)
[2019-01-09 02:42] LABS: Potassium 2.8 mmol/L (3.5-5.1)
[2019-01-09] MEDS ORDERED: Vancomycin HCl 1.25 GM in Sodium Chloride 0.9% 250 ML 250 ML IVPB SCH ×2 (03:00→06:00)
[2019-01-09] MEDS ORDERED: Potassium Chloride 20 MEQ TAB PO SCH ×3 (03:30→17:00)
[2019-01-09 05:46] LABS: Vancomycin, Trough 11.4 ug/mL
[2019-01-09] MEDS: diphenhydrAMINE 50 MG/ML VIAL IVP PRN ×2 (06:31→13:57)
[2019-01-09] MEDS: Cefepime 2 GM in Sodium Chloride 0.9% 100 ML IVPB SCH (08:43)
[2019-01-09] MEDS: Famotidine 20 MG TAB PO SCH (08:44)
[2019-01-09] MEDS: Enoxaparin Sodium 30 MG/0.3 ML SYRINGE SC SCH (08:44)
[2019-01-09] MEDS: Famotidine/PF 20 mg/2ml Vial SLOW IVP SCH (08:45)
[2019-01-09] MEDS ORDERED: HumuLIN 70/30 (300 UNITS/3 ML VIAL) SC SCH ×2 (09:00→21:00)
[2019-01-09] MEDS: HumaLOG 300 UNITS/3 ML VIAL SC PRN ×2 (12:31→16:39)
--- NOTE | 2019-01-09 13:55 | PDOC.HOSPP ---
- Subjective Subjective: Seen and examined. Patient tells me had infusion of vancomycin any points to the bag, he then tells me that shortly afterward the skin on most of his body developed a red hot rash. Possible red man syndrome. Infectious disease consultation requested for further evaluation per nocturnal physician. Rash does seem to be widespread though the patient states it has been improving since the infusion stopped. Blood cultures negative. Wound culture confirmed rosa sensitive Staphylococcus aureus. Patient with low potassium being replaced orally today. - Objective Vital Signs & Weight: Vital Signs (12 hours) Temp Pulse Resp BP BP Pulse Ox 01/09/19 11:48 98.5 F 112 H 16 102/72 98 01/09/19 08:01 97.8 F 104 H 16 112/75 98 01/09/19 05:02 98.7 F 96 19 105/69 98 Weight Admit Weight 187 lb Weight 187 lb Most Recent Monitor Data Heart Rate from ECG 62 NIBP 118/88 NIBP BP-Mean 98 Respiration from ECG 12 SpO2 100 I&O: 01/08/19 01/09/19 01/10/19 06:59 06:59 06:59 Intake Total 2841 240 Output Total 2850 800 Balance -9 -560 Result Diagrams: 01/09/19 02:01 01/09/19 02:01 Additional Labs: Accuchecks 01/09/19 01/09/19 01/09/19 11:51 04:15 00:28 POC Glucose 233 H 196 H 243 H 01/08/19 01/08/19 19:43 17:00 POC Glucose 340 H 245 H Hospitalist ROS - Review of Systems All other systems reviewed; all pertinent +/- noted in HPI/Subj - Medication Medications: Active Medications Generic Name Dose Route Start Last Admin Trade Name Freq PRN Reason Stop Dose Admin Diphenhydramine HCl 50 mg 01/08/19 20:42 01/09/19 06:31 Benadryl IVP 50 mg Q4H PRN Administration Itching Enoxaparin Sodium 30 mg 01/07/19 09:00 01/09/19 08:44 Lovenox SC 30 mg 0900 DASH Administration Famotidine 20 mg 01/07/19 09:00 01/09/19 08:45 Pepcid SLOW IVP 20 mg DAILY DASH Administration Famotidine 20 mg 01/07/19 09:00 01/09/19 08:44 Pepcid PO 20 mg DAILY DASH Administration Cefepime HCl 2 gm/ Sodium 100 mls @ 200 mls/hr 01/06/19 21:00 01/09/19 08:43 Chloride IVPB 100 mls Q12HR DASH Administration Insulin Human Isoph/Insulin Regular 35 units 01/09/19 09:00 01/09/19 09:34 Humulin 70/30 SC 35 unit QAM DASH Administration Insulin Human Lispro 0 units 01/07/19 11:39 01/09/19 12:31 Humalog SC 4 unit .MODERATE SLIDING SC PRN Administration Moderate Correctional Scale Insulin Human Lispro 0 units 01/07/19 11:39 01/09/19 01:12 Humalog SC 3 unit .BEDTIME SLIDING SC PRN Administration Bedtime Correctional Scale Ondansetron HCl 4 mg 01/06/19 16:55 01/07/19 01:28 Zofran IVP 4 mg Q6H PRN Administration Nausea/Vomiting Sodium Chloride 10 ml 01/07/19 09:00 01/09/19 08:45 Flush - Normal Saline IVF 10 ml Q12HR DASH Administration - Exam General Appearance: NAD, awake alert Eye: PERRL ENT: no oropharyngeal lesions, moist mucosa ENT - other findings: Chin lesions are healing, right inferior chin still with purulent drainage Neck: supple, symmetric Heart: no murmur, no gallops, no rubs, normal peripheral pulses Respiratory: CTAB, no wheezes, no rales, no ronchi Gastrointestinal: soft, non-tender, non-distended, no palpable masses, no guarding, no rigidity Extremities: no edema Skin - other findings: Skin lesions on chin are healing. Numerous lesions on legs from working Neurological: cranial nerve grossly intact, normal sensation to touch, no focal deficits Musculoskeletal: no muscle wasting Psychiatric: normal affect, A&O x 3 Hosp A/P (1) Facial cellulitis Code(s): L03.211 - CELLULITIS OF FACE Status: Acute (2) Dental abscess Code(s): K04.7 - PERIAPICAL ABSCESS WITHOUT SINUS Status: Acute (3) OSWALDO (acute kidney injury) Code(s): N17.9 - ACUTE KIDNEY FAILURE, UNSPECIFIED Status: Acute (4) DKA, type 1 Status: Chronic (5) Diabetic keto-acidosis Code(s): E13.10 - OTH DIABETES MELLITUS WITH KETOACIDOSIS WITHOUT COMA Status : Resolved (6) Nausea and vomiting Code(s): R11.2 - NAUSEA WITH VOMITING, UNSPECIFIED Status: Acute (7) SIRS (systemic inflammatory response syndrome) Code(s): R65.10 - SIRS OF NON-INFECTIOUS ORIGIN W/O ACUTE ORGAN DYSFUNCTION Status: Acute (8) Uncontrolled diabetes mellitus Code(s): E11.65 - TYPE 2 DIABETES MELLITUS WITH HYPERGLYCEMIA Status: Chronic - Plan Plan: Med/ surg ID consult, recommendations appreciated Oral maxillofacial surgery consult, recommendations appreciated Continue IV antibiotics Follow cultures, de escalate ABX when able cx with s.aureus, sensitivity sensitive to multiple oral ABX DKA resolved, transited to long and short acting insulin OSWALDO resolved, no indications for HD or nephrology consultation Hold Metformin in this acute phase and with OSWALDO Replace electrolytes as needed Symptomatic control for N/v
[2019-01-09 18:30] VITALS: BP 104/72; TEMP 98
--- NOTE | 2019-01-09 22:22 | DIS ---
DATE OF ADMISSION: 01/06/2019 DATE OF DISCHARGE: 01/09/2019 REASON FOR HOSPITALIZATION: Worsening skin wound on the chin resulting in severe sepsis and diabetic ketoacidosis. SIGNIFICANT FINDINGS: The patient was found to have diabetic ketoacidosis in addition to Staphylococcus aureus growing in superficial skin wound on the chin. PROCEDURES PERFORMED AND TREATMENTS RENDERED: The patient received appropriate treatment for diabetic ketoacidosis including insulin drip. The patient had treatment of severe sepsis including large volume IV fluid resuscitation, IV antibiotic therapy, and was evaluated by oral maxillofacial surgeon, please see full consultation note for details. The patient did have aspiration of chin lesion and was confirmed to have Staphylococcus aureus growing in superficial skin wound. CONDITION ON DISCHARGE: Guarded. SPECIFIC INSTRUCTIONS FOR THE PATIENT/FAMILY: 1. The patient left against medical advice. 2. The patient is recommended to return to acute care hospital immediately if signs or symptoms return, worsen, or any other new symptoms occur. 3. Even though the patient left against medical advice, I did prescribe him oral antibiotics, which were confirmed to be effective in killing this organism. 4. The patient is recommended to take all insulin as directed. 5. The patient is recommended to take oral potassium replacement, which I sent to his preferred pharmacy. 6. The patient is recommended to take all medications as directed, to be re-evaluated by primary care physician in the next 1 to 2 days. 7. The patient is recommended to follow up with primary care physician on Friday. DISCHARGE MEDICATIONS: 1. Humulin 70/30, 30 units subcutaneous injection twice per day. 2. Humalog insulin sliding scale before meals and at bedtime. 3. Metformin 500 mg one tablet p.o. b.i.d. 4. Potassium chloride 10 mEq one tablet p.o. b.i.d. 5. Doxycycline 100 mg one tablet p.o. b.i.d. HOSPITAL COURSE: Mr. Mena is a pleasant 38-year-old gentleman, who presents to the [facility] on 01/06/2019 with worsening skin wound and generalized weakness. The patient was confirmed to have worsening jaw swelling with cellulitis and there was concern initially for dental abscess, and oral maxillofacial surgeon was consulted. Please see full consultation and progress notes for details. Oral maxillofacial surgeon did aspirate the superficial skin lesion on the jaw and this was later confirmed to be Staphylococcus aureus, which was sensitive to many oral and IV agents. The patient initially admitted with diabetic ketoacidosis secondary to skin cellulitis and diagnosed with severe sepsis. The patient was admitted to intermediate medical care floor. The patient had appropriate treatment of diabetic ketoacidosis and diabetic ketoacidosis resolved. The patient had IV fluid resuscitation and IV antibiotic therapy for treatment of severe sepsis. On 01/09/2019, the patient was noted to have after a rapid infusion of vancomycin, a full body redness, rash diffusely across the skin that is raised and papular. There are two possibilities, one that the patient developed red man syndrome secondary to rapid infusion of vancomycin and the other possibility is that the patient was suffering an allergic reaction to one of the three antibiotics that was started by admitting physician. The patient initially placed on three antibiotics, which were vancomycin, cefepime, and clindamycin. After it was discovered that the patient have this rash, all of his antibiotics were discontinued an Infectious Disease specialist was consulted. Unfortunately, on the morning of 01/09/2019, the patient stating that he has to get home to go to his daughter's very special 15th birthday green party and he will not be able to stay any longer in the hospital. I encouraged the patient to stay and comply with his medical care. I encouraged the patient to stay to be evaluated by Infectious Disease specialist. Unfortunately, despite my maximum effort and efforts by nursing staff, the patient could not be convinced to stay and participate with his own care. The patient also with profoundly low potassium at a level of 2.8 on 01/09/2019. I did give the patient oral potassium replacement and he received doses prior to him leaving against medical advice. Unfortunately, the patient did leave against medical advice on 01/09/2019. I have made extra efforts to ensure that this patient without insurance was able to get his antibiotics. I went back to the patient's room at 5:00 p.m. with a coupon in hand from [employer]. The patient was sensitive to doxycycline with his Staphylococcus aureus confirmed and I sent this prescription to his preferred pharmacy. I explicitly told the patient and his significant other at bedside that with this coupon card, which I handed him from [employer], this medication would only cost 12 dollars and I encouraged him to take this medication so that his cellulitis and infection in the jaw will continue to resolve. I educated the patient and his significant other at bedside extensively on other ways that can be taken to eradicate colonization with Staphylococcus aureus including chlorhexidine baths and oral consumption of dairy product Kefir. The patient acknowledges these therapies and states that he will discuss them with his primary care physician. The patient ensures me that he will follow up with his primary care physician on Friday. I recommended the patient have repeat laboratory testing including his potassium levels and he takes oral potassium supplements, which I sent to his preferred pharmacy as directed. The patient recommended to stay and participate with further care. However, he left against medical advice on 01/09/2019. Condition guarded. The patient is recommended to return to acute care hospital immediately if signs or symptoms return, worsen, or any other new symptoms occur. Greater than 45 minutes spent coordinating care and discharge process for this patient and extra efforts were made including going back to the patient's room a second time and trying to convince him to stay and participate with his care. Unfortunately, the patient left against medical advice on 01/09/2019. Job ID: [id number]
== END 2019-01-09 16:54 | disposition left against medical advice (07) | DRG 871 ==
LOC: ERS 13:28 → ERHOLD 16:34 → IMCU/EMU 22:15 → T4-B 01-08 13:42
PROVIDERS: ADMIT Internal Medicine Nephrology; ATTEND Internal Medicine Nephrology
PROC: 0H91XZX Drainage of Face Skin, External Approach, Diagnostic (ICD-10-PCS; principal; 2019-01-07)
PROC: 3E02340 Introduction of Influenza Vaccine into Muscle, Percutaneous Approach (ICD-10-PCS; 2019-01-07)
DX: A41.9 Sepsis, unspecified organism (principal); E10.10 Type 1 diabetes mellitus with ketoacidosis without coma; L03.211 Cellulitis of face; E87.2 Acidosis; N17.9 Acute kidney failure, unspecified; Z23 Encounter for immunization; E78.00 Pure hypercholesterolemia, unspecified; E78.5 Hyperlipidemia, unspecified; F12.10 Cannabis abuse, uncomplicated; E86.0 Dehydration; R79.89 Other specified abnormal findings of blood chemistry; K04.7 Periapical abscess without sinus; B95.61 Methicillin susceptible Staphylococcus aureus infection as the cause of diseases classified elsewhere; R65.20 Severe sepsis without septic shock; S01.81XA Laceration without foreign body of other part of head, initial encounter; X58.XXXA Exposure to other specified factors, initial encounter; L27.0 Generalized skin eruption due to drugs and medicaments taken internally; T36.8X5A Adverse effect of other systemic antibiotics, initial encounter; T36.1X5A Adverse effect of cephalosporins and other beta-lactam antibiotics, initial encounter; Z79.4 Long term (current) use of insulin; Z91.14 Patient's other noncompliance with medication regimen
CPT/HCPCS: 36415; 36416; 70487; 80048; 80053; 80202; 81003; 81015; 82330; 82803; 83605; 83735; 85025; 87040; 87070; 87077; 87186; 87205; 96361; 96365; 96366; 96367; J0692; J1200; J1650; J1815; J2405; J3370; J3475; J3480; J3490; J7050; Q9966; S0028

== ENCOUNTER 2019-07-12 05:25 | Emergency (ER) | payer SELFPAY ==
[2019-07-12 05:57] LABS: #Basophils 0.1 thou/uL (0.0-0.2); #Eosinphils 0.2 thou/uL (0.0-0.7); #Lymphocytes 1.7 thou/uL (1.20-3.40); #Monocytes 0.4 thou/uL (0.11-0.59); #Neutrophils 3.9 thou/uL (1.40-6.50); %Basophils 1.3 % (0.0-1.0); %Eosinophils 2.5 % (0.0-10.0); %Lymphocytes 27.2 % (21.0-51.0); %Monocytes 6.9 % (0.0-10.0); %Neutrophils 62.1 % (42.0-75.0); Hemoglobin 15.1 g/dL (14.0-18.0); Mean Corpuscular HGB CONC 33.5 g/dL (32.0-36.0); Mean Corpuscular Hemoglobin 30.3 pg (27.0-31.0); Mean Corpuscular Volume 90.2 fL (78.0-98.0); Mean Platelet Volume 7.9 fL (7.4-10.4); Platelet Count 248 thou/uL (130-400); RBC Distribution Width 12.9 % (11.5-14.5); Red Blood Cell (RBC) Count 4.99 mill/uL (4.70-6.10); White Blood Cell (WBC) Count 6.3 thou/uL (4.8-10.8)
[2019-07-12 06:10] LABS: Amphetamine Detected (NotDetected); Barbiturates Screen Not Detected (NotDetected); Benzodiazepine Screen Not Detected (NotDetected); Cocaine Metabolite Screen Not Detected (NotDetected); Medtox Control Line Valid? VALID (VALID); Medtox Reader # READER 1; Methadone Not Detected (NotDetected); Methamphetamine Detected (NotDetected); Opiate Screen Not Detected (NotDetected); Oxycodone Screen Not Detected (NotDetected); Phencyclidine (PCP) Not Detected (NotDetected); THC/Cannabinoid Screen Detected (NotDetected); Tricyclic Screen Not Detected (NotDetected)
[2019-07-12 06:17] LABS: ALT (SGPT) 14 U/L (8-55); AST (SGOT) 16 U/L (5-34); Albumin 4.2 g/dL (3.5-5.0); Alkaline Phosphatase 108 U/L (40-110); Anion Gap 12 mmol/L (10-20); BUN (Urea Nitrogen) 11 mg/dL (8.9-20.6); Bilirubin, Total 0.6 mg/dL (0.2-1.2); Calc. Creatinine Clearance 0 mL/min (70-130); Calcium 8.9 mg/dL (7.8-10.44); Carbon Dioxide 26 mmol/L (22-29); Chloride 102 mmol/L (98-107); Estimated GFR-MDRD Greater than 90; Globulin 2.4 g/dL (2.4-3.5); Glucose 331 mg/dL (70-105); Potassium 3.9 mmol/L (3.5-5.1); Protein, Total 6.6 g/dL (6.0-8.3); Sodium 136 mmol/L (136-145)
--- NOTE | 2019-07-12 07:51 | CT ---
CT OF THE BRAIN WITHOUT CONTRAST: Date: 07/12/2019 COMPARISON: 04/14/14. HISTORY: Seizure. History of seizures. TECHNIQUE: Multiple contiguous axial images were obtained in a CT of the brain without contrast. FINDINGS: The brain is normal in morphology and attenuation without focal lesions or confluent areas of infarct ion. There is no evidence of hydrocephalus, intracranial hemorrhage, or extra-axial fluid collection. The calvarium and overlying soft tissues are unremarkable. The visualized paranasal sinuses and masto id air cells are well aerated. IMPRESSION: No evidence of acute intracranial abnormality. POS: [facility]
--- NOTE | 2019-07-14 13:43 | EKG ---
Test Reason : Blood Pressure : / mmHG Vent. Rate : 099 BPM Atrial Rate : 099 BPM P-R Int : 138 ms QRS Dur : 080 ms QT Int : 348 ms P-R-T Axes : 030 -06 026 degrees QTc Int : 446 ms Normal sinus rhythm with sinus arrhythmia Inferior infarct , age undetermined Abnormal ECG Confirmed by SHITAL ATKINSON ([id number]), editor producer JOSIE SANDERSON ([id number]) on 07/14/2019 1:42:57 PM Referred By: Confirmed By:SHITAL ATKINSON
== END 2019-07-12 07:01 | disposition home or self-care (01) ==
LOC: ERS 05:25
DX: F12.10 Cannabis abuse, uncomplicated (principal); E78.5 Hyperlipidemia, unspecified; E78.00 Pure hypercholesterolemia, unspecified; E10.9 Type 1 diabetes mellitus without complications
CPT/HCPCS: 36415; 70450; 80053; 80306; 85025; 93005; 96360

== ENCOUNTER 2023-12-01 21:20 | Inpatient (IN) | payer BC, SELFPAY ==
[2023-12-01] MEDS ORDERED: Ibuprofen 200 MG TAB ONE (21:56)
[2023-12-01 22:44] LABS: SARS-CoV-2 E Target Negative; SARS-CoV-2 N2 Target Negative; SARS-CoV-2 NAA Rapid Test Not Detected (NotDetected); SARS-CoV-2 RdRP gene Negative
[2023-12-02 00:09] LABS: ALT (SGPT) 47 U/L (8-55); AST (SGOT) 60 U/L (5-34); Albumin 3.1 g/dL (3.5-5.0); Alkaline Phosphatase 83 U/L (40-110); Anion Gap 20 mmol/L (10-20); BUN (Urea Nitrogen) 26 mg/dL (8.9-20.6); Bilirubin, Total 0.6 mg/dL (0.2-1.2); Calc. Creatinine Clearance 0 mL/min (70-130); Calcium 8.8 mg/dL (7.8-10.44); Carbon Dioxide 20 mmol/L (22-29); Chloride 92 mmol/L (98-107); Estimated GFR 44; Globulin 4.3 g/dL (2.4-3.5); Glucose 359 mg/dL (70-105); Protein, Total 7.4 g/dL (6.0-8.3); Sodium 127 mmol/L (136-145)
[2023-12-02 03:17] LABS: Bacteria/HPF None Seen HPF (None Seen); Bilirubin Negative (Negative); Blood, Urine 3+ (Negative); CAUTI Indications for Culture Fever or rigors; Clarity Turbid (Clear); Glucose, Urine (Dipstick) Greater than 1000 mg/dL (Negative); Ketone, Urine 40 mg/dL (Negative); Leukocyte Negative Leu/uL (Negative); Nitrite Negative (Negative); Protein, Urine (Dipstick) 600 mg/dL (Neg-Trace); Squamous Epithelial 0-3 HPF (0-3); Urobilinogen Normal mg/dL (Less than 2)
[2023-12-02 03:19] LABS: Urine Culture Reflex No No
[2023-12-02 03:43] LABS: Actual Bicarbonate (HCO3v) 21.4 mEq/L (22-28); Base Excess -4.1 mEq/L (-2.0 to +3.0); Calcium, Ionized (venous) 1.08 mmol/L (1.16-1.32); Chloride (VBG) 97 mmol/L (98-106); Hematocrit-VBG 41 % (42.0-52.0); Potassium (VBG) 4.46 mmol/L (3.70-5.30); Sodium 129 mmol/L (133-146)
[2023-12-02] MEDS ORDERED: Sodium Chloride 0.9% 100 ML ONE (03:50)
[2023-12-02] MEDS ORDERED: cefTRIAXone (ROCEPHIN) 1 GM VIAL ONE (03:51)
[2023-12-02] MEDS ORDERED: Glucagon 1 MG/ML KIT IM PRN ×2 (05:36→07:44)
[2023-12-02] MEDS ORDERED: Dextrose 50% Abboject 50 ML SYRINGE SLOW IVP PRN ×2 (05:36→07:44)
[2023-12-02] MEDS ORDERED: Dextrose 5% in Water 1,000 ML IV PRN ×2 (05:36→07:44)
[2023-12-02] MEDS ORDERED: Insulin Regular, Human 100 UNIT/ML 10 ML VIAL ONE (05:56)
[2023-12-02] MEDS: Sodium Chloride 0.9% 1,000 ML IV SCH ×2 (06:35→08:16)
[2023-12-02 07:04] LABS: #Basophils Less than 0.03 10x3/uL (0.0-0.2); #Eosinphils Less than 0.03 10x3/uL (0.0-0.7); %Basophils 0.2 % (0.0-1.0); %Eosinophils 0.2 % (0.0-10.0); %Lymphocytes 10.4 % (21.0-51.0); %Monocytes 5.2 % (0.0-10.0); %Neutrophils 83.8 % (42.0-75.0); Hemoglobin 14.6 g/dL (14.0-18.0); Mean Corpuscular HGB CONC 35.6 g/dL (32.0-36.0); Mean Corpuscular Hemoglobin 29.6 pg (27.0-31.0); Mean Platelet Volume 12.3 fL (7.4-10.4); Platelet Count 80 10x3/uL (130-400); RBC Distribution Width 12.1 % (11.5-14.5); Red Blood Cell (RBC) Count 4.94 mill/uL (4.70-6.10)
[2023-12-02 07:08] LABS: Anion Gap 18 mmol/L (10-20); BUN (Urea Nitrogen) 26 mg/dL (8.9-20.6); CK (CPK) 488 U/L (30-200); Calc. Creatinine Clearance 0 mL/min (70-130); Calcium 8.4 mg/dL (7.8-10.44); Carbon Dioxide 19 mmol/L (22-29); Chloride 97 mmol/L (98-107); Estimated GFR 56; Glucose 312 mg/dL (70-105); Potassium 4.8 mmol/L (3.5-5.1); Sodium 129 mmol/L (136-145)
[2023-12-02 07:34] LABS: Platelet Adequacy Comment Significant Decrease; RBC Morphology Within Normal Limits
[2023-12-02] MEDS ORDERED: Acetaminophen 500 MG TAB ONE ×2 (07:54→09:37)
[2023-12-02] MEDS ORDERED: Sodium Bicarb 50 mEq/50 ML VIAL ONE (07:54)
[2023-12-02] MEDS: Acetaminophen 500 MG TAB PO PRN ×2 (08:16→17:47)
[2023-12-02] MEDS: Sodium Bicarb 50 MEQ/50 ML Abboject 8.4% SYRINGE IVP SCH (08:16)
[2023-12-02] MEDS: Sodium Chloride 0.9% 500 ML IV SCH (08:17)
[2023-12-02 08:24] LABS: ALT (SGPT) 47 U/L (8-55); AST (SGOT) 56 U/L (5-34); Albumin 2.9 g/dL (3.5-5.0); Alkaline Phosphatase 80 U/L (40-110); Bilirubin, Direct 0.3 mg/dL (0.1-0.3); Bilirubin, Total 0.6 mg/dL (0.2-1.2); Protein, Total 6.9 g/dL (6.0-8.3)
[2023-12-02] MEDS ORDERED: Heparin 5,000 UNITS/ML VIAL ONE ×2 (09:37→15:05)
[2023-12-02] MEDS: Heparin 5,000 UNITS/ML VIAL SC SCH (09:51)
[2023-12-02] MEDS: Acetaminophen 500 MG TAB PO SCH (09:54)
[2023-12-02] MEDS ORDERED: RENALLY FS PRN (13:03)
[2023-12-02 15:00] LABS: HIV (1/2) Antibody/Antigen NONREACTIVE (NonReactive); HIV 1/2 INDEX 0.05 S/CO (<1.00)
[2023-12-02 17:20] LABS: Amphetamine Not Detected (NotDetected); Barbiturates Screen Not Detected (NotDetected); Benzodiazepine Screen Not Detected (NotDetected); Cocaine Metabolite Screen Not Detected (NotDetected); Methadone Not Detected (NotDetected); Methamphetamine Not Detected (NotDetected); Opiate Screen Not Detected (NotDetected); Oxycodone Screen Not Detected (NotDetected); Phencyclidine (PCP) Not Detected (NotDetected); THC/Cannabinoid Screen Detected (NotDetected); Tricyclic Screen Not Detected (NotDetected)
[2023-12-02 17:35] VITALS: BMI 30.1
[2023-12-02] MEDS: Insulin Lispro 100 UNIT/ML 10 ML VIAL SC PRN ×2 (18:07→20:56)
[2023-12-02] MEDS: Insulin Glargine 30 UNITS/0.3 ML VIAL SC SCH (18:40)
[2023-12-02] MEDS: Lactated Ringer's 1,000 ML IV SCH (20:56)
[2023-12-03] MEDS: cefTRIAXone\\ROCEPHIN 2 GM in Sodium Chloride 0.9% 100 ML IVPB SCH (05:33)
[2023-12-03] MEDS: Insulin Lispro 100 UNIT/ML 10 ML VIAL SC PRN (05:34)
[2023-12-03 05:37] LABS: #Basophils Less than 0.03 10x3/uL (0.0-0.2); #Eosinphils Less than 0.03 10x3/uL (0.0-0.7); %Basophils 0.3 % (0.0-1.0); %Eosinophils 0.3 % (0.0-10.0); %Lymphocytes 14.1 % (21.0-51.0); %Monocytes 5.4 % (0.0-10.0); %Neutrophils 79.6 % (42.0-75.0); Hematocrit 36.1 % (42.0-52.0); Hemoglobin 12.8 g/dL (14.0-18.0); Mean Corpuscular HGB CONC 35.5 g/dL (32.0-36.0); Mean Corpuscular Hemoglobin 29.3 pg (27.0-31.0); Mean Corpuscular Volume 82.6 fL (78.0-98.0); Mean Platelet Volume 11.8 fL (7.4-10.4); Platelet Count 64 10x3/uL (130-400); RBC Distribution Width 12.2 % (11.5-14.5); Red Blood Cell (RBC) Count 4.37 mill/uL (4.70-6.10)
[2023-12-03 06:17] LABS: ALT (SGPT) 50 U/L (8-55); AST (SGOT) 64 U/L (5-34); Albumin 2.5 g/dL (3.5-5.0); Alkaline Phosphatase 73 U/L (40-110); Anion Gap 18 mmol/L (10-20); BUN (Urea Nitrogen) 16 mg/dL (8.9-20.6); Bilirubin, Total 0.8 mg/dL (0.2-1.2); Calc. Creatinine Clearance 117 mL/min (70-130); Carbon Dioxide 21 mmol/L (22-29); Chloride 97 mmol/L (98-107); Estimated GFR 85; Globulin 3.6 g/dL (2.4-3.5); Glucose 272 mg/dL (70-105); Potassium 4.4 mmol/L (3.5-5.1); Protein, Total 6.1 g/dL (6.0-8.3); Sodium 132 mmol/L (136-145)
[2023-12-03] MEDS: Insulin Glargine 30 UNITS/0.3 ML VIAL SC SCH ×2 (08:08→08:14)
[2023-12-03 08:53] LABS: INR-International Normal Ratio 1.1; PTT 38.4 sec (22.9-36.1); Prothrombin Time 14.5 sec (12.0-14.7)
[2023-12-03] MEDS ORDERED: Insulin Glargine 30 UNITS/0.3 ML VIAL SC SCH (09:00)
[2023-12-03] MEDS: Lactated Ringer's 1,000 ML IV SCH (10:02)
[2023-12-03] MEDS: Doxycycline 100 MG in Sodium Chloride 0.9% 100 ML IVPB SCH (10:02)
[2023-12-03 10:25] LABS: D-Dimer Test 4.85 mcg/mL (0.27-0.43)
[2023-12-03 10:57] LABS: HBCM Index 0.08 S/CO (0-0.79); HBsAg Index 0.29 S/CO (0-0.99); Hep A IgM AB NONREACTIVE (NonReactive); Hep A IgM S/CO 0.17 S/CO (0-0.79); Hep B Surf Ag NONREACTIVE S/CO (NonReactive); Hep C IgG Ab NONREACTIVE S/CO (NonReactive); Hep C Index 0.06 S/CO (0-0.79); Hepatitis B Core IgM Abs NONREACTIVE S/CO (NonReactive)
[2023-12-03 14:56] LABS: Reference Lab Name LABCORP
[2023-12-04 06:07] LABS: ALT (SGPT) 48 U/L (8-55); AST (SGOT) 61 U/L (5-34); Albumin 2.3 g/dL (3.5-5.0); Alkaline Phosphatase 67 U/L (40-110); Anion Gap 16 mmol/L (10-20); BUN (Urea Nitrogen) 12 mg/dL (8.9-20.6); Bilirubin, Total 0.7 mg/dL (0.2-1.2); Calc. Creatinine Clearance 130 mL/min (70-130); Calcium 7.9 mg/dL (7.8-10.44); Carbon Dioxide 24 mmol/L (22-29); Chloride 97 mmol/L (98-107); Estimated GFR 96; Globulin 3.1 g/dL (2.4-3.5); Glucose 237 mg/dL (70-105); Potassium 4.1 mmol/L (3.5-5.1); Protein, Total 5.4 g/dL (6.0-8.3); Sodium 133 mmol/L (136-145)
[2023-12-04 06:19] LABS: Hematocrit 32.6 % (42.0-52.0); Hemoglobin 11.8 g/dL (14.0-18.0); Mean Corpuscular HGB CONC 36.2 g/dL (32.0-36.0); Mean Corpuscular Hemoglobin 28.9 pg (27.0-31.0); Mean Corpuscular Volume 79.7 fL (78.0-98.0); Mean Platelet Volume 12.2 fL (7.4-10.4); Platelet Count 59 10x3/uL (130-400); RBC Distribution Width 12.2 % (11.5-14.5); Red Blood Cell (RBC) Count 4.09 mill/uL (4.70-6.10)
[2023-12-04 06:47] LABS: PTT 39.5 sec (22.9-36.1)
[2023-12-04 06:48] LABS: INR-International Normal Ratio 1.1; Prothrombin Time 13.8 sec (12.0-14.7)
[2023-12-04 06:58] LABS: Band 24 % (5-11); Lymphocytes 3 % (21-51); Monocytes 4 % (0-10); Neutrophil 67 % (42-75); Platelet Adequacy Comment Platelets Decreased; RBC Morphology Within Normal Limits; Reactive Lymphocytes 2 % (0-10)
[2023-12-04 07:40] LABS: D-Dimer Test 5.43 mcg/mL (0.27-0.43)
[2023-12-04] MEDS: Insulin Glargine 30 UNITS/0.3 ML VIAL SC SCH (09:54)
[2023-12-05 06:15] LABS: ALT (SGPT) 57 U/L (8-55); AST (SGOT) 78 U/L (5-34); Albumin 2.3 g/dL (3.5-5.0); Alkaline Phosphatase 88 U/L (40-110); Anion Gap 17 mmol/L (10-20); BUN (Urea Nitrogen) 11 mg/dL (8.9-20.6); Bilirubin, Total 0.6 mg/dL (0.2-1.2); Calc. Creatinine Clearance 141 mL/min (70-130); Carbon Dioxide 25 mmol/L (22-29); Chloride 98 mmol/L (98-107); Estimated GFR 109; Globulin 3.3 g/dL (2.4-3.5); Glucose 241 mg/dL (70-105); Potassium 3.7 mmol/L (3.5-5.1); Protein, Total 5.6 g/dL (6.0-8.3); Sodium 136 mmol/L (136-145)
[2023-12-05 06:37] LABS: Hematocrit 33.2 % (42.0-52.0); Mean Corpuscular HGB CONC 36.1 g/dL (32.0-36.0); Mean Corpuscular Hemoglobin 29.4 pg (27.0-31.0); Mean Corpuscular Volume 81.4 fL (78.0-98.0); Mean Platelet Volume 11.6 fL (7.4-10.4); Platelet Count 86 10x3/uL (130-400); RBC Distribution Width 12.4 % (11.5-14.5); Red Blood Cell (RBC) Count 4.08 mill/uL (4.70-6.10)
[2023-12-05 07:43] LABS: Band 18 % (5-11); Lymphocytes 4 % (21-51); Monocytes 4 % (0-10); Neutrophil 72 % (42-75); Platelet Adequacy Comment Significant Decrease; RBC Morphology Within Normal Limits
[2023-12-05] MEDS: Doxycycline 100 MG CAP PO SCH (10:03)
[2023-12-05 14:19] LABS: Campy jejuni + coli by PCR Negative (Negative); STEC Shiga Toxin 1+2 Negative (Negative); Salmonella spp. by PCR Negative (Negative); Shigella spp + EIEC by PCR Negative (Negative)
[2023-12-05 15:44] VITALS: BP 124/73; TEMP 98.8
[2023-12-06] MEDS ORDERED: Insulin Glargine 30 UNITS/0.3 ML VIAL SC SCH (09:00)
[2023-12-08 15:13] LABS: Routine O & P Final report (.)
== END 2023-12-05 15:48 | disposition left against medical advice (07) | DRG 871 ==
LOC: ERS 21:20 → ERHOLD 12-02 05:17 → 2NO 12-02 16:49 → T4-A 12-04 17:36
PROVIDERS: ADMIT Internal Medicine; ATTEND Hospitalist
DX: A41.9 Sepsis, unspecified organism (principal); E10.10 Type 1 diabetes mellitus with ketoacidosis without coma; N17.9 Acute kidney failure, unspecified; E10.22 Type 1 diabetes mellitus with diabetic chronic kidney disease; N18.30 Chronic kidney disease, stage 3 unspecified; E66.9 Obesity, unspecified; E10.65 Type 1 diabetes mellitus with hyperglycemia; Z79.4 Long term (current) use of insulin; Z79.84 Long term (current) use of oral hypoglycemic drugs; Z79.899 Other long term (current) drug therapy; Z68.29 Body mass index [BMI] 29.0-29.9, adult; D69.6 Thrombocytopenia, unspecified; N40.0 Benign prostatic hyperplasia without lower urinary tract symptoms
CPT/HCPCS: 36415; 36416; 71046; 76705; 80048; 80053; 80074; 80076; 80306; 81001; 82010; 82550; 82805; 83010; 83605; 83615; 83690; 84145; 84153; 85025; 85060; 85379; 85384; 85610; 85730; 87040; 87086; 87177; 87389; 87505; 87633; 87798; 93970; 96374; J0696; J1644; J1815; J7030; J7120; U0002